=== PATIENT | male | born 1950 | race Caucasian/White ===

== ENCOUNTER 2017-10-14 17:55 | Emergency (ER) | payer MEDICARE, OTHER ==
--- NOTE | 2017-10-14 19:01 | CT ---
CT BRAIN WITHOUT CONTRAST: Date: 10/14/17 HISTORY: Emergency exam. Fall. Injury. Trauma. FINDINGS: No acute territorial infarct or hemorrhage. No midline shift or mass effect. Ventricular size and ext ra-axial CSF spaces are similar. Mild atrophy. Mild microvascular ischemic changes, chronic. Paranasal sinuses and mastoids are clear. IMPRESSION: No acute intracranial abnormality. POS: [facility]
[2017-10-14 19:26] LABS: #Basophils 0.1 thou/uL (0.0-0.2); #Lymphocytes 1.3 thou/uL (1.20-3.40); #Neutrophils 10.8 thou/uL (1.40-6.50); %Basophils 0.4 % (0.0-1.0); %Eosinophils 0.3 % (0.0-10.0); %Lymphocytes 9.9 % (21.0-51.0); %Monocytes 7.7 % (0.0-10.0); Hematocrit 36.9 % (42.0-52.0); Mean Platelet Volume 6.9 fL (7.4-10.4); Red Blood Cell (RBC) Count 3.81 mill/uL (4.70-6.10); White Blood Cell (WBC) Count 13.2 thou/uL (4.8-10.8)
--- NOTE | 2017-10-14 19:33 | CT ---
CERVICAL SPINE CT WITHOUT CONTRAST: Date: 10/14/17 COMPARISON: MRI cervical spine from 05/04/16. FINDINGS: The occipital condyles are intact. The odontoid process is intact. Both mandibular condyles are well seated within the condylar fossa. There is no acute fracture or malalignment of the cervical spine. Mild emphysematous changes of the l berna apices. Remainder of the paraspinal soft tissues are unremarkable. IMPRESSION: No acute fracture or malalignment of the cervical spine. POS: [facility]
[2017-10-14 19:39] LABS: PTT 26.7 SEC (22.9-36.1); Prothrombin Time 13.4 SEC (12.0-14.7)
[2017-10-14 19:50] LABS: ALT (SGPT) 19 U/L (8-55); AST (SGOT) 21 U/L (5-34); Alkaline Phosphatase 72 U/L (40-150); Anion Gap 14 mmol/L (10-20); BUN (Urea Nitrogen) 22 mg/dL (8.4-25.7); Bilirubin, Total 0.2 mg/dL (0.2-1.2); Calc. Creatinine Clearance 0 mL/min (70-130); Calcium 9.3 mg/dL (7.8-10.44); Carbon Dioxide 24 mmol/L (23-31); Chloride 108 mmol/L (98-107); Estimated GFR-MDRD 56; Globulin 2.7 g/dL (2.4-3.5); Protein, Total 6.7 g/dL (5.8-8.1)
[2017-10-14 19:51] LABS: Bilirubin Negative (Negative); Blood, Urine Trace (Negative); Glucose, Urine (Dipstick) Negative (Negative); Ketone, Urine Negative (Negative); Nitrite Negative (Negative); Protein, Urine (Dipstick) Trace mg/dL (Neg-Trace); Urobilinogen 0.2 mg/dL (0.2-1.0)
[2017-10-14 19:53] LABS: Bacteria/HPF None Seen HPF (None Seen); Hyaline Casts/LPF 0-3 HYALINE CAST LPF (0-3 Hyaline); RBC/HPF 0-3 HPF (0-3); Squamous Epithelial 0-3 HPF (0-3); WBC/HPF 0-3 HPF (0-3)
--- NOTE | 2017-10-14 20:28 | RAD ---
CHEST ONE VIEW HISTORY: Fall. COMPARISON: Chest one view 05/24/2017. FINDINGS: Lungs without focal airspace consolidation, pneumothorax, or effusion. Linear opacity in the left iglesia g base is similar. No acute osseous abnormality. IMPRESSION: No acute intrathoracic abnormality. POS: [facility]
--- NOTE | 2017-10-14 20:29 | RAD ---
RIGHT ELBOW FOUR VIEWS: HISTORY: Trauma. COMPARISON: None. FINDINGS: No acute fracture or malalignment. Soft tissue is unremarkable. IMPRESSION: No acute fracture or malalignment. POS: [facility]
--- NOTE | 2017-10-14 20:32 | RAD ---
LEFT ELBOW FOUR VIEWS: HISTORY: Trauma. COMPARISON: None. FINDINGS: There is a peripherally sclerotic lucency within the capitellum likely chronic in nature. There is a small joint effusion. IMPRESSION: Small joint effusion without displaced fracture or malalignment. POS: [facility]
[2017-10-14] MEDS ORDERED: Acetaminophen 500 MG TAB ONE (20:50)
--- NOTE | 2017-11-19 12:32 | EKG ---
Test Reason : FALL Blood Pressure : / mmHG Vent. Rate : 087 BPM Atrial Rate : 087 BPM P-R Int : 146 ms QRS Dur : 074 ms QT Int : 388 ms P-R-T Axes : 011 -04 005 degrees QTc Int : 466 ms Normal sinus rhythm Normal ECG No ST elevation/IN Confirmed by REX ANDREWS ([id number]), general expeditor ADA BARDALES ([id number]) on 11/19/2017 12:32:05 PM Referred By: Confirmed By:REX ANDREWS
== END 2017-10-14 22:00 | disposition home or self-care (01) ==
LOC: ERS 17:55
DX: S00.83XA Contusion of other part of head, initial encounter (principal); I73.9 Peripheral vascular disease, unspecified; F17.210 Nicotine dependence, cigarettes, uncomplicated; Z79.899 Other long term (current) drug therapy; Z79.82 Long term (current) use of aspirin; W06.XXXA Fall from bed, initial encounter
CPT/HCPCS: 36416; 51701; 70450; 71010; 72125; 80053; 81003; 81015; 85025; 85610; 85730; 87086; 93005

== ENCOUNTER 2018-01-11 01:48 | Inpatient (IN) | payer MEDICARE ==
[2018-01-11 02:29] LABS: #Basophils 0.1 thou/uL (0.0-0.2); #Eosinphils 0.5 thou/uL (0.0-0.7); #Lymphocytes 3.1 thou/uL (1.20-3.40); #Monocytes 0.9 thou/uL (0.11-0.59); #Neutrophils 5.8 thou/uL (1.40-6.50); %Basophils 0.9 % (0.0-1.0); %Lymphocytes 29.5 % (21.0-51.0); %Monocytes 8.5 % (0.0-10.0); Hemoglobin 12.2 g/dL (14.0-18.0); Mean Corpuscular HGB CONC 33.3 g/dL (32.0-36.0); Mean Corpuscular Hemoglobin 31.5 pg (27.0-31.0); Mean Corpuscular Volume 94.7 fl (80.0-94.0); Mean Platelet Volume 6.7 fL (7.4-10.4); Platelet Count 306 thou/uL (130-400); RBC Distribution Width 12.3 % (11.5-14.5); Red Blood Cell (RBC) Count 3.88 mill/uL (4.70-6.10); White Blood Cell (WBC) Count 10.4 thou/uL (4.8-10.8)
[2018-01-11 02:52] LABS: ALT (SGPT) 24 U/L (8-55); AST (SGOT) 29 U/L (5-34); Albumin 3.8 g/dL (3.4-4.8); Alkaline Phosphatase 78 U/L (40-150); Anion Gap 10 mmol/L (10-20); BUN (Urea Nitrogen) 17 mg/dL (8.4-25.7); Bilirubin, Total 0.4 mg/dL (0.2-1.2); CK (CPK) 443 U/L (30-200); Calc. Creatinine Clearance 0 mL/min (70-130); Calcium 9.2 mg/dL (7.8-10.44); Carbon Dioxide 28 mmol/L (23-31); Chloride 104 mmol/L (98-107); Estimated GFR-MDRD 67; Globulin 2.6 g/dL (2.4-3.5); Glucose 112 mg/dL (80-115); Potassium 4.1 mmol/L (3.5-5.1); Protein, Total 6.4 g/dL (5.8-8.1); Sodium 138 mmol/L (136-145)
[2018-01-11 02:56] LABS: CKMB 4.9 ng/mL (0-6.6); Troponin I 0.198 ng/mL (< 0.028)
[2018-01-11] MEDS ORDERED: Nitroglycerin 2% Ointment 1 INCH/1 GM Packet ONE (04:21)
[2018-01-11 05:38] LABS: Troponin I 0.168 ng/mL (< 0.028)
[2018-01-11 07:48] VITALS: BMI 27.8
[2018-01-11 08:40] LABS: Troponin I 0.155 ng/mL (< 0.028)
[2018-01-11] MEDS ORDERED: Acetaminophen 325 MG TAB PO PRN (08:40)
[2018-01-11] MEDS ORDERED: Ondansetron ODT 4 MG TAB PO PRN (08:40)
[2018-01-11] MEDS ORDERED: Acetaminophen ER (8hr) 650 MG TAB PO PRN (08:41)
[2018-01-11] MEDS ORDERED: Aspirin 325 MG TAB PO SCH (09:00)
[2018-01-11] MEDS ORDERED: Non-Formulary Item 1 EACH (Carbidopa/Levodopa [Sinemet Cr] 1 TAB) PO SCH (09:00)
[2018-01-11] MEDS: Multivitamin W/ Minerals 1 TAB PO SCH ×2 (09:17→11:46)
[2018-01-11] MEDS: Aspirin 325 MG TAB PO SCH ×2 (09:17→11:43)
[2018-01-11] MEDS: Carbidopa/Levodopa CR 50-200 mg Tablet PO SCH ×5 (09:17→21:49)
[2018-01-11] MEDS: Lisinopril 20 MG TAB PO SCH ×2 (09:18→11:44)
[2018-01-11] MEDS: Gabapentin 100 MG CAP PO SCH ×2 (09:18→11:46)
[2018-01-11] MEDS: Citalopram 20 MG TAB PO SCH ×2 (09:18→11:41)
[2018-01-11] MEDS: Meloxicam 7.5 MG TAB PO SCH ×2 (09:18→11:46)
[2018-01-11] MEDS: Clopidogrel Bisulfate 75 MG TAB PO SCH ×2 (09:18→11:42)
[2018-01-11] MEDS: Enoxaparin Sodium 80 MG/0.8 ML SYRINGE SC SCH ×3 (09:19→21:51)
--- NOTE | 2018-01-11 09:47 | HP ---
PRIMARY CARE PROVIDER: Dr. Rafael Mora. Referred to [facility] by [facility]. HISTORY OF PRESENT ILLNESS: The patient apparently had an anxiety attack all day long yesterday. St ates he peed in his pants. He is unable to describe any chest pain or shortness breath and no fever or chills. He had some significantly abnormal cardiac enzymes with a history of coronary artery dise ase, he was referred. PAST MEDICAL HISTORY: Pertinent for coronary artery disease with a history of PCI in the past. He h as a history of peripheral vascular disease, history of neuropathy, states he had rheumatic fever at 3 years of age, has a history of skin cancers and stress factors. PAST SURGICAL HISTORY: Tonsillectomy. He also has a history of anxiety, depression, and Parkinson's disease. CURRENT MEDICATIONS: Aspirin 325 mg a day, Sinemet-CR 25/100 q.i.d., Celexa 30 mg a day, Plavix 75 m g a day, gabapentin 200 mg a day, Levothyroxine 150 mcg a day, lisinopril 20 mg a day, Meloxicam 7.5 mg a day, omeprazole 20 mg a day, pravastatin 80 mg a day, Risperdal 0.5 mg at bedtime. ALLERGIES: PENICILLINS and PEPCID. He states the Pepcid gave him diarrhea. SOCIAL HISTORY: . Smoked in the past, has quit. Does not use any alcohol or recreational dr lopez. FAMILY HISTORY: Mother had peripheral arterial disease. Father had COPD. CODE STATUS: FULL. REVIEW OF SYSTEMS: General: No headaches, dizziness or fainting. Eyes: No double vision, blurred vision, flashing lights. ENT: No ear pain or drainage. No nasal bleeding or trouble swallowing. C ardiac: No chest pressure, no shortness of breath, no orthopnea. Respiratory: No cough, wheezing o r asthma. Gastrointestinal: No nausea, vomiting, diarrhea, constipation or abdominal pain. Genitou rinary: He says he "peed" on himself yesterday, but has no history of dysuria, incontinence or hemat uria prior to that. Musculoskeletal: No pain or swelling in his arms or legs. Neurologic: He has Parkinson's disease on treatment. He has a significant tremor. Psychiatric: Long history of anxiet y, depression and anxiety attacks. He states he has been tried alprazolam and did not do well. Skin : No bruising, bleeding or rash. Heme/Lymph: No tender or swollen lymph nodes in axilla, inguinal or cervical area. PHYSICAL EXAMINATION: GENERAL: He is an alert, apprehensive looking gentleman. VITAL SIGNS: Blood pressure 189/88, pulse 83, respirations 16, temperature 98.4. HEENT: Pupils equal and round. Extraocular movements are intact. Sclerae white. Tympanic membrane s clear. Nose clear. Oral mucous membranes are wet. NECK: No jugular venous distention, adenopathy or thyromegaly. CHEST: Clear to auscultation and percussion. There are no focal findings. HEART: Regular rate and rhythm. First and second heart sounds were clear. I do not appreciate any murmurs or gallops. ABDOMEN: Soft, bowel sounds are normal. No hepatosplenomegaly, no mass, no rebound, no bruits. EXTREMITIES: Reveal no cyanosis, clubbing or edema. Carotid and radial pulses were normal, symmetri c. Femoral and pedal pulses diminished, symmetric. SKIN: No bruising, bleeding or rash. HEME/LYMPH: No tender or swollen lymph nodes in axilla, inguinal or cervical area. NEUROLOGICAL: Cranial nerves II through XII are intact. Deep tendon reflexes symmetric. He has sig nificant cogwheeling on motion of his arms. He has some rigidity. X-RAY FINDINGS: EKG: Regular rate and rhythm, no acute changes, some nonspecific T-wave changes, re viewed by me. Chest x-ray: No cardiomegaly, CHF or infiltrate, reviewed by me. LABORATORY DATA: Hemoglobin 12.2, white count 10.4, platelet count 306,000. Most significant abnorm ality on chemistries is troponin 0.198, 0.168, 0.155. BNP is 273. Comp metabolic profile is normal. ADMITTING DIAGNOSES: Non-ST elevation myocardial infarction, coronary artery disease, hypertension, peripheral vascular disease, anxiety, depression, previous smoker. PLAN: I have consulted Dr. Armstrong. The patient will be placed on Lovenox, will be catheterized with in the next 2 days. Continue aspirin and his home medicines. Serial exams.
--- NOTE | 2018-01-11 09:57 | CON ---
DATE OF CONSULTATION: 01/11/2018 REASON FOR CONSULTATION: Anxiety, increased troponin levels, and history of peripheral vascular dise ase. PRIMARY CENTER MACHINE SET UP OPERATOR: Tammy Wilson M.D. HISTORY OF PRESENT ILLNESS: Mr. Al is a very pleasant 67-year-old gentleman, he has had an episo de of an anxiety yesterday and he said things just did not feel right, he did not have chest pain or pressure, but he thought he was having a stroke. The symptoms did not resolve. He came to the emergency room. He was found to have a slight increase in troponin levels. The patient has had previous episodes of feeling anxious, but had negative troponin levels in the pas t. PAST MEDICAL HISTORY: 1. She has a history of peripheral vascular disease, has a stent in both iliac arteries placed about a year ago by Dr. Urbina that helped his exertional claudication quite a bit. 2. History of Parkinson's. 3. Some history of anxiety in the past. 4. No diagnosis of coronary artery disease in the past. REVIEW OF SYSTEMS: Constitutional: Positive for anxiety. Vision: No changes. Hearing: No change s. Pulmonary: No cough or wheezing. Gastrointestinal: No nausea, vomiting, diarrhea. Skin: No r ashes. Neurologic: No unilateral weakness or numbness. Psychiatric: Positive for anxiety. No uni lateral weakness. MEDICATIONS: 1. Aspirin. 2. Plavix. 3. Atorvastatin. 4. Lisinopril. 5. Gabapentin. 6. Carbidopa/levodopa. 7. Levothyroxine. ALLERGIES: FAMOTIDINE and PENICILLIN. PHYSICAL EXAMINATION: GENERAL: Somewhat apprehensive gentleman. He says he feels okay now. He is not having anxiety at t he present moment. No chest pain or pressure. VITAL SIGNS: Blood pressure is high 189/88, pulse 80. LUNGS: Clear. CARDIAC: Normal S1, normal S2. There is no murmur, rub or gallop. ABDOMEN: Soft, nontender, no hepatosplenomegaly. EXTREMITIES: Warm, dry, no clubbing, cyanosis or edema. Femoral pulses are palpable but seems somew hat diminished. LABORATORY DATA: The patient's troponin level 0.198, BNP 272. EKG, no acute changes. ASSESSMENT: 1. Evidence of increased troponin level in the setting of "panic attack," I suspect this may be alyson nal equivalent. 2. History of peripheral vascular disease. 3. Hypertension. 4. Parkinson's disease. PLAN: 1. Lisinopril will be continued. 2. We will add beta judah. 3. Aspirin. 4. Plavix has already been given. 5. Enoxaparin. 6. We would recommend proceeding to cardiac catheterization on Saturday or earlier if needed. The pat ient appears stable now. The patient states he has not had a previous cardiac catheterization. Dr. Wilson will be back on Saturday to make a final decision about that.
[2018-01-11] MEDS: Metoprolol Tartrate 25 MG TAB PO SCH ×3 (09:59→20:39)
[2018-01-11 10:38] LABS: Hemoglobin 12.1 g/dL (14.0-18.0); Platelet Count 311 thou/uL (130-400)
--- NOTE | 2018-01-11 10:46 | RAD ---
PORTABLE CHEST 1 VIEW: Date: 01/11/18 Time: 0403 hours HISTORY: Chest pain. FINDINGS: Comparison made with exam of 10/14/17. The heart size is normal. The lungs are well expanded without focal areas of consolidation, pneumotho rax, or pleural effusions. IMPRESSION: No radiographic evidence of acute cardiopulmonary process. POS: [facility]
--- NOTE | 2018-01-11 18:04 | EKG ---
Test Reason : Blood Pressure : / mmHG Vent. Rate : 075 BPM Atrial Rate : 075 BPM P-R Int : 138 ms QRS Dur : 076 ms QT Int : 402 ms P-R-T Axes : 031 -22 -24 degrees QTc Int : 448 ms Normal sinus rhythm Nonspecific T wave abnormality Abnormal ECG Confirmed by TIA DOS SANTOS, DEV ([id number]), manager golf KATHY BRIDGES ([id number]) on 01/11/2018 6:03:45 PM Referred By: Confirmed By:DEV WEBER MD
[2018-01-11] MEDS ORDERED: Pravastatin Sodium 20 MG TAB PO SCH (21:00)
[2018-01-11] MEDS: risperiDONE 0.25 MG TAB PO SCH (21:48)
[2018-01-11] MEDS: Atorvastatin Calcium 20 MG TAB PO SCH (21:49)
[2018-01-12] MEDS: Levothyroxine 150 MCG TAB PO SCH (05:18)
[2018-01-12 05:21] LABS: Anion Gap 13 mmol/L (10-20); BUN (Urea Nitrogen) 19 mg/dL (8.4-25.7); Calc. Creatinine Clearance 68 mL/min (70-130); Calcium 9.3 mg/dL (7.8-10.44); Carbon Dioxide 26 mmol/L (23-31); Chloride 103 mmol/L (98-107); Estimated GFR-MDRD 59; Glucose 102 mg/dL (80-115); Potassium 4.1 mmol/L (3.5-5.1); Sodium 138 mmol/L (136-145)
--- NOTE | 2018-01-12 10:10 | PDOC.PN ---
- Subjective Encounter Start Date: 01/12/18 Encounter Start Time: 08:10 Patient seen and examined. No new complaints. No overnight events - Objective MAR Reviewed: Yes Vital Signs & Weight: Vital Signs (12 hours) Temp Pulse Resp BP Pulse Ox 01/12/18 05:00 98.7 F 67 20 123/68 100 01/12/18 03:14 95 Weight Weight 175 lb 1.6 oz I&O: 01/11/18 01/12/18 01/13/18 06:59 06:59 06:59 Intake Total 1760 Output Total 1775 Balance -15 Result Diagrams: 01/11/18 05:12 01/12/18 04:28 EKG Reviewed by me: Yes (nsr) Phys Exam - Physical Examination Constitutional: NAD HEENT: PERRLA, moist MMs, sclera anicteric Neck: no JVD, supple Respiratory: no wheezing, no rales, no rhonchi Cardiovascular: RRR, no significant murmur, no rub Gastrointestinal: soft, non-tender, no distention, positive bowel sounds Musculoskeletal: no edema, pulses present Neurological: non-focal, normal sensation Psychiatric: normal affect, A&O x 3 Skin: no rash, normal turgor Dx/Plan (1) Chest pain Code(s): R07.9 - CHEST PAIN, UNSPECIFIED Status: Acute Qualifiers: (2) Elevated troponin Code(s): R74.8 - ABNORMAL LEVELS OF OTHER SERUM ENZYMES Status: Acute (3) Anxiety and depression Code(s): F41.8 - OTHER SPECIFIED ANXIETY DISORDERS Status: Chronic (4) COPD (chronic obstructive pulmonary disease) Status: Chronic (5) Dyslipidemia Code(s): E78.5 - HYPERLIPIDEMIA, UNSPECIFIED Status: Chronic (6) GERD (gastroesophageal reflux disease) Code(s): K21.9 - GASTRO-ESOPHAGEAL REFLUX DISEASE WITHOUT ESOPHAGITIS Status: Chronic (7) Hypothyroidism Code(s): E03.9 - HYPOTHYROIDISM, UNSPECIFIED Status: Chronic (8) PVD (peripheral vascular disease) Code(s): I73.9 - PERIPHERAL VASCULAR DISEASE, UNSPECIFIED Status: Chronic (9) Parkinson disease Code(s): G20 - PARKINSON'S DISEASE Status: Chronic - Plan cont current plan of care * tomorrow dr neff will decide about cardiac cath * medication reviewed as below * symptomatic treatment * stable otherwise. Review of Systems - Review of Systems Constitutional: negative: fever, chills, sweats, weakness, malaise, other ENT: negative: Ear Pain, Ear Discharge, Nose Pain, Nose Discharge, Nose Congestion, Mouth Pain, Mouth Swelling, Throat Pain, Throat Swelling, Other Respiratory: negative: Cough, Dry, Shortness of Breath, Hemoptysis, SOB with Excertion, Pleuritic Pain, Sputum, Wheezing Cardiovascular: negative: chest pain, palpitations, orthopnea, paroxysmal nocturnal dyspnea, edema, light headedness, other Gastrointestinal: negative: Nausea, Vomiting, Abdominal Pain, Diarrhea, Constipation, Melena, Hematochezia, Other Genitourinary: negative: Dysuria, Frequency, Incontinence, Hematuria, Retention , Other Musculoskeletal: negative: Neck Pain, Shoulder Pain, Arm Pain, Back Pain, Hand Pain, Leg Pain, Foot Pain, Other Skin: negative: Rash, Lesions, Yusef, Bruising, Other - Medications/Allergies Allergies/Adverse Reactions: Allergies Allergy/AdvReac Type Severity Reaction Status Date / Time famotidine [From Pepcid] Allergy extreme Verified 02/21/17 09:58 diarrhea Penicillins Allergy Verified 01/11/18 07:27 Medications: Current Medications Acetaminophen (Tylenol) 650 mg PO Q4H PRN PRN Reason: Headache/Fever or Pain Acetaminophen (Tylenol Er (8hr Arthritis Pain)) 650 mg PO QID PRN PRN Reason: pain Aspirin (Aspirin) 325 mg PO DAILY [facility] Last Admin: 01/11/18 11:43 Dose: 325 mg Atorvastatin Calcium (Lipitor) 20 mg PO HS [facility] Last Admin: 01/11/18 21:49 Dose: 20 mg Carbidopa/Levodopa (Sinemet Cr 50/200) 0.5 tab PO QID [facility] Last Admin: 01/11/18 21:49 Dose: 0.5 tab Citalopram Hydrobromide (Celexa) 30 mg PO DAILY [facility] Last Admin: 01/11/18 11:41 Dose: 30 mg Clopidogrel Bisulfate (Plavix) 75 mg PO DAILY [facility] Last Admin: 01/11/18 11:42 Dose: 75 mg Enoxaparin Sodium (Lovenox) 80 mg SC 0900,2100 [facility] Last Admin: 01/11/18 21:51 Dose: 80 mg Gabapentin (Neurontin) 200 mg PO DAILY [facility] Last Admin: 01/11/18 11:46 Dose: Not Given Iron/Minerals/Multivitamins (Theragran M) 1 tab PO DAILY [facility] Last Admin: 01/11/18 11:46 Dose: Not Given Levothyroxine Sodium (Synthroid) 150 mcg PO 0600 [facility] Last Admin: 01/12/18 05:18 Dose: 150 mcg Lisinopril (Zestril) 20 mg PO DAILY [facility] Last Admin: 01/11/18 11:44 Dose: 20 mg Meloxicam (Mobic) 7.5 mg PO DAILY [facility] Last Admin: 01/11/18 11:46 Dose: Not Given Metoprolol Tartrate (Lopressor) 25 mg PO BID [facility] Last Admin: 01/11/18 20:39 Dose: 25 mg Ondansetron HCl (Zofran Odt) 4 mg PO Q6H PRN PRN Reason: Nausea/Vomiting Pantoprazole Sodium (Protonix) 40 mg PO DAILY [facility] Last Admin: 01/11/18 11:44 Dose: 40 mg Risperidone (Risperidone) 0.5 mg PO HS [facility] Last Admin: 01/11/18 21:48 Dose: 0.5 mg
[2018-01-12] MEDS: Metoprolol Tartrate 25 MG TAB PO SCH ×2 (10:37→22:20)
[2018-01-12] MEDS: Gabapentin 100 MG CAP PO SCH (10:37)
[2018-01-12] MEDS: Citalopram 20 MG TAB PO SCH (10:38)
[2018-01-12] MEDS: Multivitamin W/ Minerals 1 TAB PO SCH (10:38)
[2018-01-12] MEDS: Clopidogrel Bisulfate 75 MG TAB PO SCH (10:39)
[2018-01-12] MEDS: Lisinopril 20 MG TAB PO SCH (10:39)
[2018-01-12] MEDS: Meloxicam 7.5 MG TAB PO SCH (10:40)
[2018-01-12] MEDS: Aspirin 325 MG TAB PO SCH (10:40)
[2018-01-12] MEDS: Carbidopa/Levodopa CR 50-200 mg Tablet PO SCH ×4 (10:40→22:20)
[2018-01-12] MEDS: Enoxaparin Sodium 80 MG/0.8 ML SYRINGE SC SCH (10:41)
[2018-01-12] MEDS: Atorvastatin Calcium 20 MG TAB PO SCH (22:19)
[2018-01-12] MEDS: risperiDONE 0.25 MG TAB PO SCH (22:19)
--- NOTE | 2018-01-12 22:39 | CT ---
CT HEAD WITHOUT CONTRAST: Date: 01/12/18 Multiple axial tomograms obtained through the head without IV enhancement. HISTORY: Fall with injury to head. On blood thinner. FINDINGS: Jhonathan cisterna magna. No intracranial hemorrhage. Chronic ischemic white matter changes appear stable when compared to exam of 10/14/17. IMPRESSION: No acute finding. No acute hemorrhage. No change from 10/14/17. POS: [facility]
[2018-01-13] MEDS: Metoprolol Tartrate 25 MG TAB PO SCH ×3 (02:34→21:39)
[2018-01-13] MEDS: Atorvastatin Calcium 20 MG TAB PO SCH ×2 (02:34→21:38)
[2018-01-13] MEDS: Carbidopa/Levodopa CR 50-200 mg Tablet PO SCH ×5 (02:34→21:38)
[2018-01-13] MEDS: risperiDONE 0.25 MG TAB PO SCH ×2 (02:34→21:39)
[2018-01-13] MEDS: Levothyroxine 150 MCG TAB PO SCH (06:12)
[2018-01-13] MEDS ORDERED: Milk Of Magnesia 30 ML UDCUP PO PRN (07:57)
[2018-01-13] MEDS ORDERED: Chloraseptic Spray 180 ml Bottle PO PRN (07:57)
[2018-01-13] MEDS ORDERED: Eucerin (Mineral Oil/Petrolatum,White) 30 gm Jar TOP PRN (07:57)
[2018-01-13] MEDS ORDERED: Senokot 8.6 MG TAB PO PRN (07:57)
[2018-01-13] MEDS ORDERED: hydrALAZINE 20 MG/ML VIAL SLOW IVP PRN (07:57)
[2018-01-13] MEDS ORDERED: Mag-Al 1200 mg/1200 mg/30 ML UDCUP PO PRN (07:57)
[2018-01-13] MEDS ORDERED: Sodium Chloride 0.65% Nasal 44 ML BOT EA NARE PRN (07:57)
[2018-01-13] MEDS ORDERED: Loperamide HCl 2 MG CAP PO PRN (07:57)
[2018-01-13] MEDS ORDERED: Ondansetron PF 4 MG/2 ML Vial IVP PRN (07:57)
[2018-01-13] MEDS ORDERED: Loratadine 10 MG TAB PO PRN (07:57)
[2018-01-13] MEDS ORDERED: Artificial Tears 18 DROP/0.9 ML EA EYE PRN (07:57)
[2018-01-13] MEDS ORDERED: Diabetic Tussin 200 MG/10 ML UDCUP PO PRN (07:57)
[2018-01-13] MEDS: Lisinopril 20 MG TAB PO SCH (08:54)
[2018-01-13] MEDS: Gabapentin 100 MG CAP PO SCH (08:56)
[2018-01-13] MEDS: Meloxicam 7.5 MG TAB PO SCH (08:57)
[2018-01-13] MEDS: Multivitamin W/ Minerals 1 TAB PO SCH (08:57)
[2018-01-13] MEDS: Clopidogrel Bisulfate 75 MG TAB PO SCH (08:57)
[2018-01-13] MEDS: Citalopram 20 MG TAB PO SCH (08:57)
[2018-01-13] MEDS: Aspirin 325 MG TAB PO SCH (08:58)
--- NOTE | 2018-01-13 10:22 | PDOC.PN ---
- Subjective Encounter Start Date: 01/13/18 Encounter Start Time: 07:50 yesterday pt fell but no injury, CT brain is negative, no chest pain, - Objective MAR Reviewed: Yes Vital Signs & Weight: Vital Signs (12 hours) Temp Pulse Resp BP BP Pulse Ox 01/13/18 08:54 168/80 H 01/13/18 08:50 98.4 F 72 16 168/80 H 94 L 01/13/18 05:00 98.1 F 68 12 142/68 H 95 Weight Weight 175 lb 4.8 oz I&O: 01/12/18 01/13/18 01/14/18 06:59 06:59 06:59 Intake Total 1760 1260 Output Total 1775 250 Balance -15 1010 Result Diagrams: 01/11/18 05:12 01/12/18 04:28 Radiology Reviewed by me: Yes (CT brain) EKG Reviewed by me: Yes Phys Exam - Physical Examination Constitutional: NAD HEENT: PERRLA, moist MMs, sclera anicteric Neck: no JVD, supple Respiratory: no wheezing, no rales, no rhonchi Cardiovascular: RRR, no significant murmur, no rub Gastrointestinal: soft, non-tender, no distention, positive bowel sounds Musculoskeletal: no edema, pulses present Neurological: non-focal, normal sensation, moves all 4 limbs Psychiatric: normal affect, A&O x 3 Skin: no rash, normal turgor Dx/Plan (1) Chest pain Code(s): R07.9 - CHEST PAIN, UNSPECIFIED Status: Acute Qualifiers: (2) Elevated troponin Code(s): R74.8 - ABNORMAL LEVELS OF OTHER SERUM ENZYMES Status: Acute (3) Anxiety and depression Code(s): F41.8 - OTHER SPECIFIED ANXIETY DISORDERS Status: Chronic (4) COPD (chronic obstructive pulmonary disease) Status: Chronic (5) Dyslipidemia Code(s): E78.5 - HYPERLIPIDEMIA, UNSPECIFIED Status: Chronic (6) GERD (gastroesophageal reflux disease) Code(s): K21.9 - GASTRO-ESOPHAGEAL REFLUX DISEASE WITHOUT ESOPHAGITIS Status: Chronic (7) Hypothyroidism Code(s): E03.9 - HYPOTHYROIDISM, UNSPECIFIED Status: Chronic (8) PVD (peripheral vascular disease) Code(s): I73.9 - PERIPHERAL VASCULAR DISEASE, UNSPECIFIED Status: Chronic (9) Parkinson disease Code(s): G20 - PARKINSON'S DISEASE Status: Chronic - Plan cont current plan of care, plan discussed w/ family, PT/OT, social worker palliative care * today cardiology to decide about cardiac cath * as pt has frequent fall, pt and family request SNU evaluation * start PT/OT * medication reviewed as below * symptomatic treatment. Review of Systems - Review of Systems Eyes: negative: Pain, Vision Change, Conjunctivae Inflammation, Eyelid Inflammation, Redness, Other ENT: negative: Ear Pain, Ear Discharge, Nose Pain, Nose Discharge, Nose Congestion, Mouth Pain, Mouth Swelling, Throat Pain, Throat Swelling, Other Respiratory: negative: Cough, Dry, Shortness of Breath, Hemoptysis, SOB with Excertion, Pleuritic Pain, Sputum, Wheezing Cardiovascular: negative: chest pain, palpitations, orthopnea, paroxysmal nocturnal dyspnea, edema, light headedness, other Gastrointestinal: negative: Nausea, Vomiting, Abdominal Pain, Diarrhea, Constipation, Melena, Hematochezia, Other Genitourinary: negative: Dysuria, Frequency, Incontinence, Hematuria, Retention , Other Musculoskeletal: negative: Neck Pain, Shoulder Pain, Arm Pain, Back Pain, Hand Pain, Leg Pain, Foot Pain, Other Skin: negative: Rash, Lesions, Yusef, Bruising, Other - Medications/Allergies Allergies/Adverse Reactions: Allergies Allergy/AdvReac Type Severity Reaction Status Date / Time famotidine [From Pepcid] Allergy extreme Verified 02/21/17 09:58 diarrhea Penicillins Allergy Verified 01/11/18 07:27 Medications: Current Medications Acetaminophen (Tylenol) 650 mg PO Q4H PRN PRN Reason: Headache/Fever or Pain Acetaminophen (Tylenol Er (8hr Arthritis Pain)) 650 mg PO QID PRN PRN Reason: pain Al Hydroxide/Mg Hydroxide (Maalox) 15 ml PO Q4H PRN PRN Reason: Heartburn or Indigestion Artificial Tears (Tears Naturale) 0 drop EA EYE PRN PRN PRN Reason: Dry Eyes Aspirin (Aspirin) 325 mg PO DAILY [facility] Last Admin: 01/13/18 08:58 Dose: 325 mg Atorvastatin Calcium (Lipitor) 20 mg PO HS [facility] Last Admin: 01/13/18 02:34 Dose: Not Given Carbidopa/Levodopa (Sinemet Cr 50/200) 0.5 tab PO QID [facility] Last Admin: 01/13/18 08:55 Dose: 0.5 tab Citalopram Hydrobromide (Celexa) 30 mg PO DAILY [facility] Last Admin: 01/13/18 08:57 Dose: 30 mg Clopidogrel Bisulfate (Plavix) 75 mg PO DAILY [facility] Last Admin: 01/13/18 08:57 Dose: 75 mg Gabapentin (Neurontin) 200 mg PO DAILY [facility] Last Admin: 01/13/18 08:56 Dose: 200 mg Guaifenesin (Robitussin Sf) 200 mg PO Q4H PRN PRN Reason: Cough Hydralazine HCl (Apresoline) 10 mg SLOW IVP Q4H PRN PRN Reason: Systolic BP > 180 Iron/Minerals/Multivitamins (Theragran M) 1 tab PO DAILY [facility] Last Admin: 01/13/18 08:57 Dose: 1 tab Levothyroxine Sodium (Synthroid) 150 mcg PO 0600 [facility] Last Admin: 01/13/18 06:12 Dose: 150 mcg Lisinopril (Zestril) 20 mg PO DAILY [facility] Last Admin: 01/13/18 08:54 Dose: 20 mg Loperamide HCl (Imodium) 2 mg PO PRN PRN PRN Reason: Diarrhea/Loose Stools Loratadine (Claritin) 10 mg PO DAILYPRN PRN PRN Reason: Sinus Symptoms Magnesium Hydroxide (Milk Of Magnesium) 30 ml PO DAILYPRN PRN PRN Reason: Constipation Meloxicam (Mobic) 7.5 mg PO DAILY [facility] Last Admin: 01/13/18 08:57 Dose: 7.5 mg Metoprolol Tartrate (Lopressor) 25 mg PO BID [facility] Last Admin: 01/13/18 08:57 Dose: 25 mg Mineral Oil/White Petrolatum (Eucerin Cream) 0 gm TOP BIDPRN PRN PRN Reason: Dry Skin Ondansetron HCl (Zofran Odt) 4 mg PO Q6H PRN PRN Reason: Nausea/Vomiting Ondansetron HCl (Zofran) 4 mg IVP Q6H PRN PRN Reason: Nausea/Vomiting Pantoprazole Sodium (Protonix) 40 mg PO DAILY [facility] Last Admin: 01/13/18 08:56 Dose: 40 mg Phenol (Chloraseptic [place] 180 Ml Bot) 0 ml PO PRN PRN PRN Reason: Sore Throat Risperidone (Risperidone) 0.5 mg PO HS [facility] Last Admin: 01/13/18 02:34 Dose: Not Given Senna (Senokot) 2 tab PO HSPRN PRN PRN Reason: Constipation Sodium Chloride ([place] Nasal [place] 0.65%) 0 ml EA NARE QIDPRN PRN PRN Reason: Nasal Congestion Sodium Chloride (Flush - Normal Saline) 10 ml IVF Q12HR [facility] Last Admin: 01/13/18 08:58 Dose: 10 ml Sodium Chloride (Flush - Normal Saline) 10 ml IVF PRN PRN PRN Reason: Saline Flush
[2018-01-13 13:50] LABS: Hemoglobin 13.9 g/dL (14.0-18.0); Platelet Count 369 thou/uL (130-400)
[2018-01-14] MEDS: Levothyroxine 150 MCG TAB PO SCH (05:48)
[2018-01-14] MEDS: Aspirin 325 MG TAB PO SCH (09:32)
[2018-01-14] MEDS: Gabapentin 100 MG CAP PO SCH (09:33)
[2018-01-14] MEDS: Multivitamin W/ Minerals 1 TAB PO SCH (09:33)
[2018-01-14] MEDS: Clopidogrel Bisulfate 75 MG TAB PO SCH (09:33)
[2018-01-14] MEDS: Citalopram 20 MG TAB PO SCH (09:33)
[2018-01-14] MEDS: Meloxicam 7.5 MG TAB PO SCH (09:34)
[2018-01-14] MEDS: Metoprolol Tartrate 25 MG TAB PO SCH (09:34)
[2018-01-14] MEDS: Lisinopril 20 MG TAB PO SCH (09:34)
[2018-01-14] MEDS: Carbidopa/Levodopa CR 50-200 mg Tablet PO SCH ×3 (09:34→15:54)
--- NOTE | 2018-01-14 09:34 | PDOC.PN ---
- Subjective Encounter Start Date: 01/14/18 Encounter Start Time: 08:00 Patient seen and examined. No new complaints. No overnight events - Objective MAR Reviewed: Yes Vital Signs & Weight: Vital Signs (12 hours) Temp Pulse Resp BP Pulse Ox 01/14/18 09:28 98.6 F 90 16 171/83 H 95 01/14/18 04:00 98.5 F 86 20 174/77 H 97 Weight Weight 171 lb 11.2 oz I&O: 01/13/18 01/14/18 01/15/18 06:59 06:59 06:59 Intake Total 1260 800 Output Total 250 650 Balance 1010 150 Result Diagrams: 01/13/18 13:40 01/13/18 13:40 EKG Reviewed by me: Yes Phys Exam - Physical Examination Constitutional: NAD HEENT: PERRLA, moist MMs, sclera anicteric Neck: no JVD, supple Respiratory: no wheezing, no rales, no rhonchi Cardiovascular: RRR, no significant murmur, no rub Gastrointestinal: soft, non-tender, no distention, positive bowel sounds Musculoskeletal: no edema, pulses present Neurological: non-focal, normal sensation Lymphatic: no nodes Psychiatric: normal affect, A&O x 3 Skin: no rash, normal turgor Dx/Plan (1) Chest pain Code(s): R07.9 - CHEST PAIN, UNSPECIFIED Status: Acute Qualifiers: (2) Elevated troponin Code(s): R74.8 - ABNORMAL LEVELS OF OTHER SERUM ENZYMES Status: Acute (3) Anxiety and depression Code(s): F41.8 - OTHER SPECIFIED ANXIETY DISORDERS Status: Chronic (4) COPD (chronic obstructive pulmonary disease) Status: Chronic (5) Dyslipidemia Code(s): E78.5 - HYPERLIPIDEMIA, UNSPECIFIED Status: Chronic (6) GERD (gastroesophageal reflux disease) Code(s): K21.9 - GASTRO-ESOPHAGEAL REFLUX DISEASE WITHOUT ESOPHAGITIS Status: Chronic (7) Hypothyroidism Code(s): E03.9 - HYPOTHYROIDISM, UNSPECIFIED Status: Chronic (8) PVD (peripheral vascular disease) Code(s): I73.9 - PERIPHERAL VASCULAR DISEASE, UNSPECIFIED Status: Chronic (9) Parkinson disease Code(s): G20 - PARKINSON'S DISEASE Status: Chronic - Plan 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 Review of Systems - Review of Systems ENT: negative: Ear Pain, Ear Discharge, Nose Pain, Nose Discharge, Nose Congestion, Mouth Pain, Mouth Swelling, Throat Pain, Throat Swelling, Other Respiratory: negative: Cough, Dry, Shortness of Breath, Hemoptysis, SOB with Excertion, Pleuritic Pain, Sputum, Wheezing Cardiovascular: negative: chest pain, palpitations, orthopnea, paroxysmal nocturnal dyspnea, edema, light headedness, other Gastrointestinal: negative: Nausea, Vomiting, Abdominal Pain, Diarrhea, Constipation, Melena, Hematochezia, Other Genitourinary: negative: Dysuria, Frequency, Incontinence, Hematuria, Retention , Other Musculoskeletal: negative: Neck Pain, Shoulder Pain, Arm Pain, Back Pain, Hand Pain, Leg Pain, Foot Pain, Other Skin: negative: Rash, Lesions, Yusef, Bruising, Other - Medications/Allergies Allergies/Adverse Reactions: Allergies Allergy/AdvReac Type Severity Reaction Status Date / Time famotidine [From Pepcid] Allergy extreme Verified 02/21/17 09:58 diarrhea Penicillins Allergy Verified 01/11/18 07:27 Medications: Current Medications Acetaminophen (Tylenol) 650 mg PO Q4H PRN PRN Reason: Headache/Fever or Pain Acetaminophen (Tylenol Er (8hr Arthritis Pain)) 650 mg PO QID PRN PRN Reason: pain Al Hydroxide/Mg Hydroxide (Maalox) 15 ml PO Q4H PRN PRN Reason: Heartburn or Indigestion Artificial Tears (Tears Naturale) 0 drop EA EYE PRN PRN PRN Reason: Dry Eyes Aspirin (Aspirin) 325 mg PO DAILY COUNTS INCLUDE 234 BEDS AT THE [facility] Last Admin: 01/13/18 08:58 Dose: 325 mg Atorvastatin Calcium (Lipitor) 20 mg PO HS COUNTS INCLUDE 234 BEDS AT THE [facility] Last Admin: 01/13/18 21:38 Dose: Not Given Carbidopa/Levodopa (Sinemet Cr 50/200) 0.5 tab PO QID COUNTS INCLUDE 234 BEDS AT THE [facility] Last Admin: 01/13/18 21:38 Dose: Not Given Citalopram Hydrobromide (Celexa) 30 mg PO DAILY COUNTS INCLUDE 234 BEDS AT THE [facility] Last Admin: 01/13/18 08:57 Dose: 30 mg Clopidogrel Bisulfate (Plavix) 75 mg PO DAILY COUNTS INCLUDE 234 BEDS AT THE [facility] Last Admin: 01/13/18 08:57 Dose: 75 mg Gabapentin (Neurontin) 200 mg PO DAILY COUNTS INCLUDE 234 BEDS AT THE [facility] Last Admin: 01/13/18 08:56 Dose: 200 mg Guaifenesin (Robitussin Sf) 200 mg PO Q4H PRN PRN Reason: Cough Hydralazine HCl (Apresoline) 10 mg SLOW IVP Q4H PRN PRN Reason: Systolic BP > 180 Last Admin: 01/13/18 12:06 Dose: 10 mg Iron/Minerals/Multivitamins (Theragran M) 1 tab PO DAILY COUNTS INCLUDE 234 BEDS AT THE [facility] Last Admin: 01/13/18 08:57 Dose: 1 tab Levothyroxine Sodium (Synthroid) 150 mcg PO 0600 COUNTS INCLUDE 234 BEDS AT THE [facility] Last Admin: 01/14/18 05:48 Dose: 150 mcg Lisinopril (Zestril) 20 mg PO DAILY COUNTS INCLUDE 234 BEDS AT THE [facility] Last Admin: 01/13/18 08:54 Dose: 20 mg Loperamide HCl (Imodium) 2 mg PO PRN PRN PRN Reason: Diarrhea/Loose Stools Loratadine (Claritin) 10 mg PO DAILYPRN PRN PRN Reason: Sinus Symptoms Magnesium Hydroxide (Milk Of Magnesium) 30 ml PO DAILYPRN PRN PRN Reason: Constipation Meloxicam (Mobic) 7.5 mg PO DAILY COUNTS INCLUDE 234 BEDS AT THE [facility] Last Admin: 01/13/18 08:57 Dose: 7.5 mg Metoprolol Tartrate (Lopressor) 25 mg PO BID COUNTS INCLUDE 234 BEDS AT THE [facility] Last Admin: 01/13/18 21:39 Dose: Not Given Mineral Oil/White Petrolatum (Eucerin Cream) 0 gm TOP BIDPRN PRN PRN Reason: Dry Skin Ondansetron HCl (Zofran Odt) 4 mg PO Q6H PRN PRN Reason: Nausea/Vomiting Ondansetron HCl (Zofran) 4 mg IVP Q6H PRN PRN Reason: Nausea/Vomiting Pantoprazole Sodium (Protonix) 40 mg PO DAILY COUNTS INCLUDE 234 BEDS AT THE [facility] Last Admin: 01/13/18 08:56 Dose: 40 mg Phenol (Chloraseptic [place] 180 Ml Bot) 0 ml PO PRN PRN PRN Reason: Sore Throat Risperidone (Risperidone) 0.5 mg PO HS COUNTS INCLUDE 234 BEDS AT THE [facility] Last Admin: 01/13/18 21:39 Dose: Not Given Senna (Senokot) 2 tab PO HSPRN PRN PRN Reason: Constipation Sodium Chloride ([place] Nasal [place] 0.65%) 0 ml EA NARE QIDPRN PRN PRN Reason: Nasal Congestion Sodium Chloride (Flush - Normal Saline) 10 ml IVF Q12HR DEENA Last Admin: 01/13/18 21:39 Dose: Not Given Sodium Chloride (Flush - Normal Saline) 10 ml IVF PRN PRN PRN Reason: Saline Flush
--- NOTE | 2018-01-14 09:59 | PDOC.CTH ---
Cardiology Progress Note - Subjective The Pt seen and examined. No overnight events. He denied CP or discomfort in his chest, SOB or other cardiac complaints. The pt's family would like to discuss with Case management about the pt's care plan. - Objective Vital Signs Temp Pulse Resp BP BP Pulse Ox 01/14/18 09:34 168/80 H 01/14/18 09:28 98.6 F 90 16 171/83 H 95 01/14/18 04:00 98.5 F 86 20 174/77 H 97 Weight 171 lb 11.2 oz 01/13/18 01/14/18 01/15/18 06:59 06:59 06:59 Intake Total 1260 800 Output Total 250 650 Balance 1010 150 - Physical Examination Neck: no JVD present Lungs: CTA Heart: RRR Abdomen: soft Extremities: other: (no edema) - Telemetry Telemetry Rhythm: SR with PVCs 89 - Labs Result Diagrams: 01/13/18 13:40 01/13/18 13:40 Troponin/CKMB CK-MB (CK-2) 4.9 ng/mL (0-6.6) 01/11/18 02:12 Troponin I 0.155 ng/mL (< 0.028) H 01/11/18 08:06 - Assessment/Plan 1. Chest pain - No more CP or discomfort or other cardiac complaints this AM. 2. HTN - Start Norvasc 5mg PO daily; cont. monitor 3. Dyslipidemia - On statin 4. PVD with Hx of Bilat. Iliac stent - stable; cont. monitor 5. COPD - stable with RA 6. Hypothyroidism - managed by PCP 7. Anxiety and depression - family at bedside MAR reviewed Review of Systems - Review of Systems Constitutional: reports: no symptoms reported EENTM: reports: no symptoms reported Respiratory: reports: no symptoms reported Cardiac (ROS): reports: no symptoms reported ABD/GI: reports: no symptoms reported : reports: no symptoms reported Musculoskeletal: reports: no symptoms reported Skin: reports: no symptoms reported
[2018-01-14] MEDS ORDERED: Amlodipine 5 MG TAB PO SCH (10:00)
--- NOTE | 2018-01-14 11:10 | DIS ---
DATE OF ADMISSION: 01/11/2018 DATE OF DISCHARGE: 01/14/2018 PRIMARY CARE PHYSICIAN: Dr. Rafael Mora. DISCHARGE DISPOSITION: care home home versus assisted living with Home Health. PRIMARY DISCHARGE DIAGNOSES: Chest pain, ruled out acute coronary syndrome, elevated troponin due to demand ischemia. SECONDARY DISCHARGE DIAGNOSES: Peripheral vascular disease, Parkinson's disease, hypothyroidism, gas troesophageal reflux disease, dyslipidemia, chronic obstructive pulmonary disease, anxiety, and depre ssion. PRIMARY PROCEDURE/OPERATION: None. RADIOLOGICAL INVESTIGATION: Chest x-ray showed no acute cardiopulmonary process. CT brain negative for any acute intracranial process. SIGNIFICANT LABORATORY DATA: WBC 10.4, hemoglobin 13.9, platelets 369. Sodium 138, potassium 4.1, B UN 19, creatinine 1.21, calcium 9.3, troponin 0.155. BNP 272.3. Liver enzymes normal. Total CK 443 . DISCHARGE MEDICATIONS: Tylenol Arthritis 650 mg p.o. q.i.d. p.r.n., aspirin 325 mg p.o. daily, Lizy et CR 25/100 one tablet q.i.d., Celexa 30 mg p.o. daily, Plavix 75 mg p.o. daily, gabapentin 200 mg p .o. daily, Synthroid 150 mcg p.o. daily, lisinopril 20 mg p.o. daily, Mobic 7.5 mg p.o. daily, omepra zole 20 mg p.o. daily, pravastatin 80 mg p.o. at bedtime, risperidone 0.5 mg p.o. at bedtime. CONTRAINDICATIONS: None. CODE STATUS: FULL CODE. INPATIENT CONSULTANTS: Dr. Armstrong and Dr. Wilson was following while in hospital. TEST RESULTS PENDING ON DISCHARGE: None. ALLERGIES: PEPCID and PENICILLIN. DISCHARGE PLAN: Post hospital, patient is advised to follow up with primary care physician as instru cted. HOSPITAL COURSE: A 67-year-old male with above-mentioned medical problem who was admitted by Dr. Florencio adams. Please see his H&P for further details. Patient is living at assisted living facility and he wa s referred to our hospital for anxiety attack and he was having chest discomfort. He also had elevat ed troponin. His chest discomfort was we attributed to be due to most likely from anxiety neurosis, but he had elevated troponin and that is why we kept in hospital. We treated him medically with Love nox. Cardiology was consulted. Cardiology recommended over the weekend that Dr. Wilson will decide ab out cardiac catheterization. This patient also had episode of fall in hospital and he was having sunil quent fall and that is why we did PT, OT consultation and discharge planning. Physical therapy recom mends to go assisted living facility with home health. Family member also requested to place him to a assisted home if possible and we are consulting bottle caser to work on this. Otherwise, this patient is medically stable. Cardiology has not deci ded to do cardiac catheterization during this admission. He is medically stable. He does not have a ny further chest pain or any cardiac symptoms. He will continue the above-mentioned medication as ab ove. The patient is seen and examined at bedside today. Please see my progress note from today for furthe r details. Patient is going to follow with primary care physician after discharge.
[2018-01-14 16:01] VITALS: TEMP 98.7
[2018-01-14 16:36] VITALS: BP 142/82
[2018-01-15] MEDS ORDERED: Amlodipine 5 MG TAB PO SCH (09:00)
== END 2018-01-14 16:36 | DRG 311 ==
LOC: ERS 01:48 → 2SW 07:19 → OBSVTOIN 08:59 → 2NO 12:23
PROVIDERS: ADMIT Internal Medicine; ATTEND Internal Medicine
DX: I24.8 Other forms of acute ischemic heart disease (principal); G20 Parkinson's disease; J44.9 Chronic obstructive pulmonary disease, unspecified; I73.9 Peripheral vascular disease, unspecified; E03.9 Hypothyroidism, unspecified; K21.9 Gastro-esophageal reflux disease without esophagitis; E78.5 Hyperlipidemia, unspecified; F41.0 Panic disorder [episodic paroxysmal anxiety]; F32.9 Major depressive disorder, single episode, unspecified; I10 Essential (primary) hypertension; I25.10 Atherosclerotic heart disease of native coronary artery without angina pectoris; Z87.891 Personal history of nicotine dependence; Z88.0 Allergy status to penicillin; Z88.8 Allergy status to other drugs, medicaments and biological substances; Z79.02 Long term (current) use of antithrombotics/antiplatelets; Z79.82 Long term (current) use of aspirin; Z79.899 Other long term (current) drug therapy
CPT/HCPCS: 36415; 70450; 71045; 80048; 80053; 82553; 82565; 83880; 84484; 85014; 85018; 85025; 85049; 93005; 94760; G8978-GP-CL; G8979-GP-CJ; G8987-GO-CJ; G8988-GO-CH; J0360; J1650

== ENCOUNTER 2018-02-26 14:48 | Inpatient (IN) | payer MEDICARE ==
[~2018-02-26 14:48] MED LIST: ISOVUE-370 76%-LOCM 1 ML ONE
--- NOTE | 2018-02-26 15:03 | RAD ---
SINGLE VIEW OF THE CHEST: Comparison: 01-11-18 History: Cough. FINDINGS: Single view of the chest shows a normal sized cardiomediastinal silhouette. There is no evidence of c onsolidation, mass, or pleural effusion. The bones are unremarkable. IMPRESSION: No evidence of acute cardiopulmonary disease. POS: [facility]
[2018-02-26 15:16] LABS: #Lymphocytes 0.5 thou/uL (1.20-3.40); #Monocytes 1.2 thou/uL (0.11-0.59); #Neutrophils 8.6 thou/uL (1.40-6.50); %Basophils 0.2 % (0.0-1.0); %Eosinophils 0.2 % (0.0-10.0); %Lymphocytes 4.5 % (21.0-51.0); %Monocytes 11.7 % (0.0-10.0); %Neutrophils 83.4 % (42.0-75.0); Hemoglobin 12.3 g/dL (14.0-18.0); Mean Corpuscular HGB CONC 32.6 g/dL (32.0-36.0); Mean Corpuscular Hemoglobin 31.3 pg (27.0-31.0); Mean Platelet Volume 7.5 fL (7.4-10.4); Platelet Count 227 thou/uL (130-400); RBC Distribution Width 13.2 % (11.5-14.5); Red Blood Cell (RBC) Count 3.93 mill/uL (4.70-6.10); White Blood Cell (WBC) Count 10.3 thou/uL (4.8-10.8)
[2018-02-26 15:37] LABS: ALT (SGPT) 242 U/L (8-55); AST (SGOT) 432 U/L (5-34); Alkaline Phosphatase 218 U/L (40-150); Anion Gap 15 mmol/L (10-20); BUN (Urea Nitrogen) 26 mg/dL (8.4-25.7); Bilirubin, Total 0.7 mg/dL (0.2-1.2); Calc. Creatinine Clearance 0 mL/min (70-130); Calcium 9.5 mg/dL (7.8-10.44); Carbon Dioxide 21 mmol/L (23-31); Chloride 107 mmol/L (98-107); Estimated GFR-MDRD 44; Globulin 2.7 g/dL (2.4-3.5); Glucose 138 mg/dL (80-115); Protein, Total 6.7 g/dL (5.8-8.1); Sodium 139 mmol/L (136-145)
[2018-02-26 15:50] LABS: Lipase 1885 U/L (8-78)
[2018-02-26] MEDS ORDERED: Piperacillin/Tazobactam 3.375 GM VIAL ONE (16:22)
[2018-02-26 16:36] LABS: Bilirubin Negative (Negative); Blood, Urine Negative (Negative); Clarity CLEAR (Clear); Glucose, Urine (Dipstick) Negative (Negative); Leukocyte Negative (Negative); Nitrite Negative (Negative); Protein, Urine (Dipstick) 30 mg/dL (Neg-Trace); Specific Gravity, Urine 1.021 (1.002-1.036); pH, Urine 5.5 (5.0-9.0)
[2018-02-26 16:37] LABS: Bacteria/HPF None Seen HPF (None Seen); Hyaline Casts/LPF 7-10 HYALINE CAST LPF (0-3 Hyaline); Pathc Cast-AUWi Flag 1.45 (0-2.49); Squamous Epithelial 0-3 HPF (0-3)
[2018-02-26 16:43] LABS: Renal Epithelial None Seen HPF (0-3); Transitional Epithelial NONE SEEN HPF (0-3)
--- NOTE | 2018-02-26 17:49 | CT ---
NONCONTRAST CT HEAD: 02/26/18 HISTORY: Injury after a fall. Fever. Patient hit head when falling. COMPARISON: 01/12/18. FINDINGS: Again noted are chronic small vessel ischemic changes and cerebral volume loss similar to the prior e xam. There is a stable small remote lacunar infarction within the left thalamus. There is no evidence of an acute cortical infarction, hemorrhage, mass effect, or midline shift. Jhonathan cisterna magna is a gain seen. There is no intraparenchymal or extra-axial hemorrhage. No mass effect or midline shift is seen. There is no evidence of a calvarial fracture. The visualized paranasal sinuses and mastoid air cells are clear. IMPRESSION: 1. No acute intracranial abnormalities demonstrated. 2. Stable chronic small vessel ischemic changes with cerebral volume loss. 3. Stable small remote lacunar infarction left thalamus. POS: [facility]
--- NOTE | 2018-02-26 17:52 | CT ---
CERVICAL SPINE CT NONCONTRAST: 02/26/18 INDICATION: Fall with neck injury, pain. FINDINGS: Craniocervical junction is intact. There is mild multilevel degenerative change of the cervical spine . No significant subluxation or retropulsion of bone into the vertebral canal. No acute facet malalig nment. IMPRESSION: No acute osseous abnormality. Incidental note of emphysema at the upper lung zones. Correlate clinically. There is also incomplete ly assessed wall thickening of the esophagus. As indicated, this could be further evaluated with doub le contrast upper GI, as clinically indicated. POS: [facility]
--- NOTE | 2018-02-26 17:58 | CT ---
ABDOMEN AND PELVIC CT WITH CONTRAST 02/26/18 INDICATION: Abdominal pain, elevated liver function enzymes. FINDINGS: There is abnormal inflammation and thickening of the duodenum with surrounding inflammation. There is also pericholecystic inflammation. There is mild prominence and hypodensity of the extrahepatic bili arlene ductal system, with the imaged common duct measuring a diameter of approximately 13 mm. There is mild fullness and slight edema involving head and uncinate process of the pancreas. Diverticulum invo lves the third portion of the duodenum. There is no pneumoperitoneum. No evidence of focal hepatic o r splenic lesion. No hydronephrosis or adrenal mass. there are dependent patchy opacities at each iglesia g base. Scattered atherosclerotic vascular disease is present. Aortobiiliac stent is seen. Mild wall prominence of the urinary bladder is present. Limited evaluation of the bowel without enteric contras t. There is mild superior end plate irregularity and sclerosis of T12. IMPRESSION: Findings indicative of duodenitis. There is adjacent pericholecystic inflammation as well. Prominence of the extrahepatic biliary ductal system with slight thickening/hyperdensity. Correlate w ith biliary laboratory values. No radiopaque ductal stone is seen within limitations. There is prominence and edema of the head and uncinate process of the pancreas. A focal pancreatitis versus underlying mass are considerations. Recommend gastroenterology consultation, and continued elpidio ging following upon resolution of acute symptoms to exclude possibility of underlying mass. Code T POS: [facility]
[2018-02-26 19:07] LABS: Lactic Acid 2.1 mmol/L (0.5-2.2)
[2018-02-26] MEDS ORDERED: Ondansetron ODT 4 MG TAB PO PRN (21:17)
[2018-02-26] MEDS ORDERED: Morphine 4 MG/ML VIAL SLOW IVP PRN (21:17)
[2018-02-26] MEDS ORDERED: Ondansetron HCl/PF 4 MG/2 ML Vial IVP PRN (21:17)
[2018-02-26] MEDS ORDERED: cloNIDine 0.1 MG TAB PO PRN (21:17)
[2018-02-26] MEDS ORDERED: Cefepime 2 GM in Sodium Chloride 0.9% 100 ML IVPB SCH (21:17)
[2018-02-26] MEDS: Sodium Chloride 0.9% 1,000 ML IV SCH (23:20)
[2018-02-26] MEDS: Cefepime 2 GM, Syringe 2.5 ML in Sodium Chloride 0.9% 10 ML SLOW IVP SCH (23:21)
[2018-02-26] MEDS: Acetaminophen 500 MG TAB PO PRN (23:21)
[2018-02-26] MEDS: metroNIDAZOLE 500 MG in Premix Bag 1 BAG IVPB SCH (23:21)
[2018-02-26] MEDS ORDERED: risperiDONE 0.25 MG TAB PO SCH (23:30)
--- NOTE | 2018-02-27 00:32 | HP ---
DATE OF ADMISSION: 02/26/2018 PRIMARY CARE PHYSICIAN: Rafael Mora M.D. CHIEF COMPLAINT: Abdominal pain and diarrhea. HISTORY OF PRESENT ILLNESS: This is a 67-year-old male who resides at [facility], com plaining of general weakness, diarrhea, fever, and general malaise. The patient states the symptoms began in the last 24 hours and have progressed with profound weakness with resultant fall. The patie nt denied any specific loss of consciousness or head injury, but states he has been generally feeling weak in the last several hours prior to evaluation in the emergency room. Initial evaluation by EMS reported a fever of 102.4 degrees Fahrenheit at which point patient was transferred to the emergency department for evaluation. Initial evaluation in the emergency room including CT of the brain showe d no acute intracranial process. CT of the abdomen and pelvis performed on 02/26/2018 showed promine nce of the extrahepatic biliary ductal system and thickening and hyperdensity indicative of a duodeni tis. There was also noted pericholecystic inflammatory process. Prominent edema of the head and unc inate process of the pancreas was also noted. The patient did meet sepsis criteria and received IV f luids as well as vancomycin. The patient's metabolic survey revealed a transaminitis as well as elev ated lipase of 1885. The patient was referred to the Hospitalist Service for admission. PAST MEDICAL HISTORY: 1. Coronary artery disease. 2. Peripheral vascular disease. 3. Parkinson's disease. 4. Hypothyroidism. 5. Gastroesophageal reflux disease. 6. Dyslipidemia. 7. Chronic obstructive pulmonary disease. 8. Anxiety/depression. 9. History of falls. 10. History of peripheral neuropathy. 11. History of skin cancers. PAST SURGICAL HISTORY: 1. Status post tonsillectomy. 2. Status post cardiac stent with PCI. CURRENT MEDICATIONS: Based on recent admission 01/11/2018 showed, 1. Aspirin 325 mg 1 tab p.o. daily. 2. Sinemet-CR 25/100 mg 1 tab p.o. q.i.d. 3. Celexa 30 mg p.o. daily. 4. Plavix 75 mg p.o. daily. 5. Gabapentin 300 mg p.o. daily. 6. Levothyroxine 150 mcg p.o. daily. 7. Lisinopril 20 mg p.o. daily. 8. Meloxicam 7.5 mg p.o. daily. 9. Omeprazole 20 mg p.o. daily. 10. Pravachol 80 mg p.o. daily. 11. Risperdal 0.5 mg p.o. at bedtime. ALLERGIES: PENICILLIN and PEPCID. FAMILY HISTORY: Mother with peripheral artery disease. Father had COPD. SOCIAL HISTORY: . Resides at [facility]. History of prior falls. Former tobacco user, quit in 2017. No alcohol or illicit drug use. REVIEW OF SYSTEMS: The following complete review of systems was negative, unless otherwise mentioned in the HPI or below: Constitutional: Weight loss or gain, ability to conduct usual activities. Sk in: Rash, itching. Eyes: Double vision, pain. ENT/Mouth: Nose bleeding, neck stiffness, pain, te nderness. Cardiovascular: Palpitations, dyspnea on exertion, orthopnea. Respiratory: Shortness of breath, wheezing, cough, hemoptysis, fever or night sweats. Gastrointestinal: Poor appetite, abdom inal pain, heartburn, nausea, vomiting, constipation, or diarrhea. Genitourinary: Urgency, frequenc y, dysuria, nocturia. Musculoskeletal: Pain, swelling. Neurologic/Psychiatric: Anxiety, depressio n. Allergy/Immunologic: Skin rash, bleeding tendency. PHYSICAL EXAMINATION: VITAL SIGNS: On admission, blood pressure is 158/81, pulse 102, respiratory rate 22, temperature 102 .4 degrees Fahrenheit, O2 saturation 91% on room air. GENERAL APPEARANCE: This is a 67-year-old male lying on the hospital bed, ill appearing, f lushed, responds to questions, in mild distress. HEENT: Pupils are equal, round, and reactive to light and accommodation. Extraocular muscles are in tact. Bilateral conjunctival injection noted. Nares patent. OP is clear. Oral mucosa dry appearin g. Teeth in fair repair. NECK: Supple, no cervical adenopathy, no thyromegaly, no carotid bruits, no JVD appreciated. Cervic al spine with full active and passive range of motion. No meningeal signs appreciated. CHEST: Lungs are clear to auscultation bilaterally. CARDIOVASCULAR: S1, S2 with tachycardia. No murmur or gallop appreciated. ABDOMEN: Rounded with tenderness to palpation in the midepigastrium. Bowel sounds are positive in a ll four quadrants. There is no palpable mass. No rebound or guarding noted. EXTREMITIES: Warm and dry with fair turgor. No clubbing, cyanosis or asymmetric edema appreciated. Pulses palpable distally at the dorsalis pedis, posterior tibial, and popliteal arteries bilaterally . Capillary refill less than 2 seconds. NEUROLOGIC: Cranial nerves II-XII are grossly intact. No focal or lateralizing signs appreciated. PERTINENT LABORATORY AND X-RAY FINDINGS: Sodium 139, potassium 4.0, chloride 107, CO2 of 21, BUN 26, creatinine 1.58 with estimated GFR of 44, glucose 138. Lactic acid level ranged between 2.1-2.5, ca lcium 9.5, AST 432, ALT 242, alkaline phosphatase 218, lipase 1885, albumin 4.0. CBC showed a white blood cell count of 10.3, hemoglobin 12, hematocrit 38, MCV 96, platelet count 227 with 83% neutrophi josue. Urinalysis positive for protein. CT of the abdomen and pelvis dated 02/26/2018 showed potentia l duodenitis. Pericholecystic inflammatory process noted. Edema of the head and uncinate process of the pancreas consistent with pancreatitis. CT of the brain dated 02/26/2018 showed no acute intracr anial process. Chronic ischemic white matter changes noted. CT of the cervical spine dated 02/27/20 18 showed no acute fracture or dislocation. Portable chest x-ray dated 02/26/2018 showed no acute ca rdiopulmonary process. EKG dated 02/26/2018 by my interpretation shows a sinus mechanism with heart rates in the 90s. Normal R-wave progression noted in the precordial leads. Premature atrial complex es noted. Normal axis. T-wave flattening in the lateral leads. T-wave inversion noted in leads V4, V6 and leads 1. ASSESSMENT AND PLAN: 1. Sepsis. The patient will be admitted to the surgical cline. Suspect cholecystitis with associate d pancreatitis/duodenitis. We will continue IV Flagyl 500 mg q.8 hours with additional cefepime 2 gr ams IV q.12 hours due to PENICILLIN allergy. We will continue general sepsis protocol. Serial lacta te evaluation. We will continue IV fluids with normal saline at 125 mL per hour. Blood and urine cu ltures pending. 2. Pancreatitis. We will consult GI service for evaluation. No specific evidence of cholelithiasis or choledocholithiasis on CT imaging. Continue serial lipase evaluation. Clear liquids. Check fas ting lipid profile in the a.m. 3. Acute kidney injury. Continue intravenous fluids with normal saline. Avoid nephrotoxic agents a nd CONTRAST MEDIA. Repeat creatinine in the a.m. 4. Transaminitis. Suspect secondarily to #1 and #2. 5. We will continue to trend LFTs and repeat in the a.m. Avoid hepatotoxic medications. GI consult ation in the a.m. 6. Hypertension. We will resume home antihypertensive regimen and monitor clinical response. 7. Prophylaxis. Sequential compression devices while in bed. Protonix 40 mg IV q.24 hours. PT devendra luation in the a.m. 8. Code status is FULL. Surrogate medical decision maker is Jack Al.
[2018-02-27] MEDS: metroNIDAZOLE 500 MG in Premix Bag 1 BAG IVPB SCH ×3 (06:25→21:06)
[2018-02-27] MEDS: Sodium Chloride 0.9% 1,000 ML IV SCH ×2 (06:26→08:40)
[2018-02-27 06:42] VITALS: BMI 26.8
[2018-02-27 08:28] LABS: ALT (SGPT) 178 U/L (8-55); AST (SGOT) 145 U/L (5-34); Albumin 3.7 g/dL (3.4-4.8); Alkaline Phosphatase 176 U/L (40-150); Anion Gap 12 mmol/L (10-20); BUN (Urea Nitrogen) 24 mg/dL (8.4-25.7); Calc. Creatinine Clearance 56 mL/min (70-130); Calcium 9.2 mg/dL (7.8-10.44); Carbon Dioxide 22 mmol/L (23-31); Cardiac Risk 2.9 (Less than 4.5); Chloride 108 mmol/L (98-107); Cholesterol 111 mg/dl (< 200 Desired); Estimated GFR-MDRD 50; Globulin 2.6 g/dL (2.4-3.5); Glucose 79 mg/dL (80-115); HDL Cholesterol 38 mg/dL (>60 Neg Risk); LDL Cholesterol, Calculated 62 mg/dL; Lipase 389 U/L (8-78); Potassium 4.2 mmol/L (3.5-5.1); Protein, Total 6.3 g/dL (5.8-8.1); Sodium 138 mmol/L (136-145); Triglycerides 56 mg/dL (Less than 150)
[2018-02-27 08:30] LABS: Hemoglobin 11.8 g/dL (14.0-18.0); Mean Corpuscular Hemoglobin 30.8 pg (27.0-31.0); Mean Corpuscular Volume 96.3 fl (80.0-94.0); Mean Platelet Volume 7.8 fL (7.4-10.4); Platelet Count 196 thou/uL (130-400); RBC Distribution Width 13.4 % (11.5-14.5); Red Blood Cell (RBC) Count 3.83 mill/uL (4.70-6.10); White Blood Cell (WBC) Count 10.4 thou/uL (4.8-10.8)
[2018-02-27] MEDS: Pantoprazole 40 MG VIAL IVP SCH ×2 (08:36)
[2018-02-27] MEDS: risperiDONE 0.25 MG TAB PO SCH ×2 (08:36→21:04)
[2018-02-27 09:28] LABS: Band 6 % (5-11); Eosinophils 3 % (0-10); Lymphocytes 20 % (21-51); MDiff Complete? YES; Monocytes 6 % (0-10); Neutrophil 64 % (42-75); RBC Morphology Normal; Reactive Lymphocytes 1 % (0-10)
[2018-02-27] MEDS: Cefepime 2 GM, Syringe 2.5 ML in Sodium Chloride 0.9% 10 ML SLOW IVP SCH ×2 (09:54→21:06)
--- NOTE | 2018-02-27 10:28 | PDOC.PN ---
- Subjective Encounter Start Date: 02/27/18 Encounter Start Time: 10:26 Subjective: feels much better,hungry - Objective Resuscitation Status: Resuscitation Status FULL:Full Resuscitation MAR Reviewed: Yes Vital Signs & Weight: Vital Signs (12 hours) Temp Pulse Resp BP BP Pulse Ox 02/27/18 09:41 167/74 H 02/27/18 08:25 98.8 F 88 16 94 L 02/27/18 07:20 98.8 F 88 16 174/78 H 94 L 02/27/18 05:00 99.5 F 84 19 164/78 H 95 02/26/18 23:12 100.4 F H 91 18 159/79 H 93 L Weight Weight 176 lb 8 oz I&O: 02/26/18 02/27/18 02/28/18 06:59 06:59 06:59 Intake Total 920 Output Total 325 Balance 595 Result Diagrams: 02/27/18 06:57 02/27/18 06:30 Phys Exam - Physical Examination Neck: no JVD Respiratory: clear to auscultation bilateral Cardiovascular: RRR, no significant murmur Gastrointestinal: soft, non-tender, positive bowel sounds Musculoskeletal: edema present Dx/Plan (1) Pancreatitis Code(s): K85.90 - ACUTE PANCREATITIS WITHOUT NECROSIS OR INFECTION, UNSP Status: Acute Qualifiers: Chronicity: acute Pancreatitis type: unspecified pancreatitis type Acute pancreatitis complication: unspecified Qualified Code(s): K85.90 - Acute pancreatitis without necrosis or infection, unspecified (2) Pancreatic mass Status: Acute (3) GERD (gastroesophageal reflux disease) Code(s): K21.9 - GASTRO-ESOPHAGEAL REFLUX DISEASE WITHOUT ESOPHAGITIS Status: Chronic Qualifiers: Esophagitis presence: esophagitis presence not specified Qualified Code(s) : K21.9 - Gastro-esophageal reflux disease without esophagitis (4) Hypothyroidism Code(s): E03.9 - HYPOTHYROIDISM, UNSPECIFIED Status: Chronic Qualifiers: Hypothyroidism type: unspecified Qualified Code(s): E03.9 - Hypothyroidism , unspecified (5) Parkinson disease Code(s): G20 - PARKINSON'S DISEASE Status: Chronic - Plan slow iv fluids, start po liquids -: cont home meds, selected -: await GI consult * .
[2018-02-27] MEDS: hydrALAZINE 20 MG/ML VIAL SLOW IVP PRN ×2 (11:18→16:18)
--- NOTE | 2018-02-27 13:53 | CON ---
DATE OF CONSULTATION: 02/27/2018 HISTORY OF PRESENT ILLNESS: The patient is a 67-year-old male who was in normal state of h ealth until 24 hours prior to the admission when he reports he was not feeling well and having abdomi nal discomfort. He was also noted to have fever and was transported to the emergency room. CT was p erformed showed prominence of the extrahepatic biliary ductal system and thickening and hyperdensity of that duct. There was also some duodenitis and enlargement of the pancreatic head. He was doing b thomas and then according to family members, his fever returned today. PAST MEDICAL HISTORY: Significant for coronary artery disease, peripheral vascular disease, Parkinso n disease, hypothyroidism, gastroesophageal reflux disease, hyperlipidemia, COPD and peripheral neuro parrish. PAST SURGICAL HISTORY: Includes tonsillectomy and cardiac stent placement. CURRENT MEDICATIONS: Include aspirin, Sinemet, Celexa, Plavix, gabapentin, levothyroxine, lisinopril , meloxicam, omeprazole, Pravachol and Risperdal. ALLERGIES: Include PENICILLIN and PEPCID. FAMILY HISTORY: Negative for GI or liver disease. SOCIAL HISTORY: He is in an assisted living. Does not smoke or drink. REVIEW OF SYSTEMS: Unobtainable as the patient is an extremely poor historian. PHYSICAL EXAMINATION: GENERAL: Shows an older white male in no acute distress. VITAL SIGNS: Temperature is 98.4, pulse 88, respiratory rate is 16 and blood pressure 184/78. HEENT: Unremarkable. NECK: Supple. CHEST: Clear. CARDIOVASCULAR: Regular rate and rhythm. ABDOMEN: Soft and nontender, without organomegaly or masses. Bowel sounds are present and normoacti ve. RECTAL: Deferred. EXTREMITIES: Normal. NEUROLOGIC: Nonfocal. LABORATORY DATA: Shows on admission a total bilirubin of 0.7, AST 432, ALT 242, alkaline phosphatase 218, lipase of 1885. Repeat lipase showed 741 and today's lipase is 389. AST today is 145 and ALT is 178. Admission hemoglobin is 12.3, it dropped to 12.8. ASSESSMENT: 1. Biliary pancreatitis. 2. Possible acute cholecystitis. RECOMMENDATIONS: 1. N.p.o. 2. Surgical opinion. 3. No need for ERCP at this time since the patient's LFTs seems to be trending down.
--- NOTE | 2018-02-27 16:53 | HP ---
HISTORY OF PRESENT ILLNESS: Mikaela is a patient with psychiatric issues probably schizoaffective dis order, schizophrenia, admitted to [facility] who developed abdominal pain, fever, brou ght into the hospital yesterday and found to have a white count of 10, hemoglobin of 12, lipase of 18 85, carbon dioxide 21, bilirubin 0.7, AST of 432, ALT of 242, alkaline phosphatase 218. Today, his A ST and ALT have improved. Lipase down to 389. He has been started on liquid diet. Abdominal pelvic CAT scan obtained for 02/26/2018 reveals prominent extrahepatic biliary system, pancreatitis, and bi le duct 13 mm. No evidence of other mass, pancreatic. There was no mention on his CAT scan of galls tones. Abdominal exam did suggest non-tenderness on today's exam. Dr. Morfin called me regarding lapa roscopic cholecystectomy. Intraoperative cholangiogram, then only ERCP if necessary. ALLERGIES: PENICILLIN. TOBACCO: None. ALCOHOL: None. MEDICATIONS: As an outpatient, Seroquel 50 mg b.i.d., clonazepam 0.5 mg at bedtime, diphenhydramine 5 mg at bedtime, Celexa 30 mg daily, aspirin 325 mg daily, lisinopril 20 mg daily, levothyroxine 150 mcg daily, gabapentin 200 mg b.i.d., Plavix 75 mg a day, meloxicam 7.5 mg daily, risperidone 0.5 mg b .i.d., pravastatin 40 mg daily, omeprazole 20 mg daily. The patient has been started on Flagyl and c efepime. PAST SURGICAL HISTORY: There is reported to have peripheral stents for PAD placed by Dr. Urbina last year. His cardiac stress test two months ago in this facility was negative for ischemia status. CT scan of the head on admission was unremarkable. Chest x-ray is unremarkable. The patient had a card iac stress test 12/18/2016 with normal ejection fraction, no evidence of ischemia. On 02/22/2017, Dr Azalea Urbina did an aortogram, bilateral runoff with right common iliac stent and left common iliac artery stent. There has been no history of coronary disease. The patient has been seen by Dr. Wilson in the past. PHYSICAL EXAMINATION: VITAL SIGNS: 5 foot 8, 176 pounds, 26 BMI. HEENT: Unremarkable. LUNGS: Clear to auscultation. CARDIAC: Regular rate and rhythm without murmur or gallop. ABDOMEN: Soft. Minimal tenderness epigastric, right upper quadrant, no guarding, rebound. EXTREMITIES: Unremarkable. LABORATORY DATA: As noted above. ASSESSMENT AND PLAN: 1. Biliary pancreatitis. We will obtain ultrasound of the gallbladder today and plan laparoscopic v ideo cholecystectomy. Cholangiogram is tomorrow. If cholangiogram revealed or positive, then ERCP w ill be necessary. We will contact Dr. Morfin. Risks and benefits infection, bleeding, reoperation, bi liary visceral injury, biliary injury, possible open procedure discussed, he consents. 2. PENICILLIN allergy. 3. Poor mobility, living in assisted living. 4. Psychiatric illness.
--- NOTE | 2018-02-27 20:43 | ULT ---
GALLBLADDER ULTRASOUND: 02/27/18 CLINICAL HISTORY: Pancreatitis. FINDINGS: There is increased echogenicity of the hepatic parenchyma which is slightly prominent in size. No foc al hepatic lesion evident. There is moderate distention of the gallbladder with borderline thickening of the gallbladder wall and a mild degree of pericholecystic edema. Martin's sign is reported as neg ative. There is abnormal dilatation of the of the common duct as was depicted on preceding CT exam, p revious day. No discernible cholelithiasis or identifiable choledocholithiasis. IMPRESSION: 1. Moderately distended gallbladder with mild wall thickening and pericholecystic edema. Correla te clinically for evidence of cholecystitis. 2. Biliary ductal dilatation. Correlate with laboratory values for evaluation of a biliary obstr uctive process. POS: FRIDA
[2018-02-27] MEDS: Enoxaparin Sodium 40 MG/0.4 ML SYRINGE SC SCH (21:05)
[2018-02-27] MEDS: Acetaminophen 500 MG TAB PO PRN (23:28)
[2018-02-28] MEDS: metroNIDAZOLE 500 MG in Premix Bag 1 BAG IVPB SCH ×2 (05:40→18:55)
[2018-02-28] MEDS ORDERED: Lactated Ringer's 1,000 ML IV SCH (08:00)
--- NOTE | 2018-02-28 08:50 | PDOC.PN ---
- Subjective Encounter Start Date: 02/28/18 Encounter Start Time: 08:49 Subjective: no distress - Objective Resuscitation Status: Resuscitation Status FULL:Full Resuscitation MAR Reviewed: Yes Vital Signs & Weight: Vital Signs (12 hours) Temp Pulse Resp BP BP Pulse Ox 02/28/18 08:00 98.7 F 71 20 165/79 H 95 02/28/18 04:00 98.7 F 62 16 129/69 94 L 02/27/18 23:19 184/68 H 02/27/18 23:07 99.6 F 79 20 184/68 H 93 L 02/27/18 21:06 99.3 F 94 20 95 Weight Weight 176 lb 8 oz I&O: 02/27/18 02/28/18 03/01/18 06:59 06:59 06:59 Intake Total 920 1440 Output Total 325 550 Balance 595 890 Result Diagrams: 02/27/18 06:57 02/27/18 06:30 Phys Exam - Physical Examination Neck: no JVD Respiratory: clear to auscultation bilateral Cardiovascular: RRR, no significant murmur Gastrointestinal: soft, non-tender, positive bowel sounds Musculoskeletal: edema present Dx/Plan (1) Pancreatitis Code(s): K85.90 - ACUTE PANCREATITIS WITHOUT NECROSIS OR INFECTION, UNSP Status: Acute Qualifiers: Chronicity: acute Pancreatitis type: unspecified pancreatitis type Acute pancreatitis complication: unspecified Qualified Code(s): K85.90 - Acute pancreatitis without necrosis or infection, unspecified (2) Pancreatic mass Status: Acute (3) GERD (gastroesophageal reflux disease) Code(s): K21.9 - GASTRO-ESOPHAGEAL REFLUX DISEASE WITHOUT ESOPHAGITIS Status: Chronic Qualifiers: Esophagitis presence: esophagitis presence not specified Qualified Code(s) : K21.9 - Gastro-esophageal reflux disease without esophagitis (4) Hypothyroidism Code(s): E03.9 - HYPOTHYROIDISM, UNSPECIFIED Status: Chronic Qualifiers: Hypothyroidism type: unspecified Qualified Code(s): E03.9 - Hypothyroidism , unspecified (5) Parkinson disease Code(s): G20 - PARKINSON'S DISEASE Status: Chronic - Plan planned cholecystectomy today, FU post * .
[2018-02-28] MEDS: Pantoprazole 40 MG VIAL IVP SCH ×2 (09:41)
[2018-02-28] MEDS: risperiDONE 0.25 MG TAB PO SCH ×2 (09:47→21:58)
[2018-02-28] MEDS: Cefepime 2 GM, Syringe 2.5 ML in Sodium Chloride 0.9% 10 ML SLOW IVP SCH (09:47)
--- NOTE | 2018-02-28 11:36 | PQF ---
SILVANA JOSE COUNCIL C MD [id number] SURG A- [id number] CLINICAL DOCUMENTATION IMPROVEMENT CLARIFICATION FORM: ICD-10 Updated PLEASE DO AN ADDENDUM TO THE PROGRESS NOTE WITH ANY DOCUMENTATION UPDATES OR ADDITIONS AND CARRY THROUGH TO DC SUMMARY. THANK YOU. DATE: 02-28-18 ATTN: DR. SHARMILA MANLEY Please exercise your independent, professional judgment in responding to the clarification form. Clinical indicators are provided on the bottom of this form for your review Please check appropriate box(s) to clarify if the following diagnosis has been ruled in or ruled out: SEPSIS [ x ] Ruled in diagnosis [ ] Continue to treat [ x] Resolved [ ] Ruled out diagnosis [ ] Cannot rule out diagnosis [ ] Other diagnosis [ ] Unable to determine For continuity of documentation, please document condition throughout progress notes and discharge summary. Thank You. CLINICAL INDICATORS - SIGNS / SYMPTOMS / LABS EMS: TEMP 102.4 ER: TEMP 101.3 ORAL 89% ON RA - GIVEN 2LNC RESP 18 - 22 PULSE 82 - 102 LABS: 4- LACTIC ACID 2.5 ER DX: ACUTE PANCREATITIS; DUODENITIS; POSS CHOLECYSTITIS H&P: SEPSIS - SUSPECT CHOLECYSTITIS W/ ASSOCIATED PANCREATITIS/DUODENITIS VERONICA RISK FACTORS H&P: SEPSIS - SUSPECT CHOLECYSTITIS W/ ASSOCIATED PANCREATITIS/DUODENITIS VERONICA TREATMENTS GI CONSULT ABD/PELVIS CT/ BRAIN CT / ABD US ER: VANCOMYCIN IV 02-26 ZOSYN IV 02-26 MAR: FLAGYL IV 02-26 / 02-27 / 02-28 MAXIPIME IV 02-26 / 02-27 / 02-28 THANK YOU, TRACIE (This form is maintained as a part of the permanent medical record) 2014 [employer]. All Rights Reserved Tracie Tapia RN, BS [email or web address]
--- NOTE | 2018-02-28 14:30 | PRG ---
DATE OF SERVICE: 02/28/2018 SUBJECTIVE: The patient is without complaints. He is awaiting to have surgery. OBJECTIVE: VITAL SIGNS: Temperature 98.7, pulse 74, respiratory rate 18, blood pressure 160/77. CHEST: Clear. CARDIOVASCULAR: Regular rate and rhythm. ABDOMEN: Soft, nontender, without organomegaly or masses. LABORATORY DATA: Shows a lipase of 94, hemoglobin 11.8, hematocrit 36.9. Ultrasound showed no galls tones, distended gallbladder and a biliary ductal dilatation. ASSESSMENT: Biliary pancreatitis. RECOMMENDATIONS: Cholecystectomy with intraoperative cholangiogram.
[2018-02-28] MEDS ORDERED: Iothalamate Meglumine 60% 50 ML VIAL FS ONE (14:56)
[2018-02-28] MEDS ORDERED: Bupivacaine HCl 0.5%/Epinephrine 1:200,000/PF 30 ml Vial ONE (14:56)
[2018-02-28] MEDS ORDERED: Ondansetron HCl/PF 4 MG/2 ML Vial ONE (15:24)
[2018-02-28] MEDS ORDERED: PROPOFOL 200 MG/20 ML VIAL ONE (15:24)
[2018-02-28] MEDS ORDERED: Glycopyrrolate 0.2 MG/ML 5 ML SYRINGE ONE (15:24)
[2018-02-28] MEDS ORDERED: Lidocaine 1% PF 5 ML VIAL ONE (15:24)
[2018-02-28] MEDS ORDERED: Fentanyl 100 MCG/2 ML VIAL ONE (15:41)
[2018-02-28] MEDS ORDERED: hydrALAZINE 20 MG/ML VIAL ONE (15:49)
[2018-02-28] MEDS ORDERED: HYDROmorphone 0.5 MG/0.5 ML SYRINGE ONE (16:07)
[2018-02-28] MEDS ORDERED: Ondansetron HCl/PF 4 MG/2 ML Vial IVP PRN ×2 (17:02)
[2018-02-28] MEDS ORDERED: HYDROmorphone 2 MG/ML VIAL SLOW IVP PRN ×2 (17:02)
[2018-02-28] MEDS ORDERED: Ibuprofen 600 MG TAB PO PRN (17:25)
[2018-02-28] MEDS ORDERED: traMADol HCl 50 MG TAB PO PRN ×2 (17:25)
[2018-02-28] MEDS ORDERED: Ketorolac Tromethamine 30 MG/ML VIAL IVP PRN (17:30)
[2018-02-28] MEDS ORDERED: Acetaminophen 1,000 MG in Premix Bag 1 BAG IVPB PRN (17:30)
[2018-02-28] MEDS ORDERED: risperiDONE 0.25 MG TAB PO SCH (21:00)
--- NOTE | 2018-02-28 21:55 | OP ---
DATE OF SERVICE: 02/28/2018 PREOPERATIVE DIAGNOSIS: Biliary pancreatitis. POSTOPERATIVE DIAGNOSIS: Biliary pancreatitis. PROCEDURE: Laparoscopic video cholecystectomy. SURGEON: Jabier Kwon M.D. ANESTHESIA: General. Local 0.5% Marcaine with epinephrine changed. PROCEDURE PERFORMED: Laparoscopic cholecystectomy with normal intraoperative cholangiograms without bile duct obstruction or opacities, but markedly dilated common bile duct. PROCEDURE: The patient taken to the operating room where under general anesthesia, abdomen was clipp ed of hair, prepared with ChloraPrep, draped in routine fashion. Local anesthetic infiltrated. Skin seems tissue about the operative sites. Infraumbilical incision made and pneumoperitoneum to 15. T hese were obtained the Veress needle, replacing it with a 5 port and laparoscope inserted. Right sub xiphoid incision made and 11 port placed. Right subcostal incision made mid clavicular anterior axil magdalene lines and a 5 port placed. Liver appeared to be normal. There is gallbladder wall was edematou s. Cystic artery and duct dissected free. Critical view obtained. Cystic artery double clipped pro ximally. Cystic duct dissected free. Single clipped on the gallbladder side. Opening made in the c ystic duct cholangiocath inserted and cholangiogram was obtained using fluoroscopy revealing a marked ly dilated common hepatic, common bile, left and right hepatic ducts without filling defects and kelly ed and rapid drainage of the contrast into the duodenum with a normal tapering common bile duct. Cho langiocath removed. Cystic duct stump doubly clipped, divided. Cystic artery divided. The gallblad josie dissected free from liver bed from edematous attachments. Gallbladder and contents removed and s ubmitted to Pathology. Good hemostasis ensured with cautery and heat getting irrigant and pneumoperi toneum evacuated. Once removed and all skin incisions approximated with interrupted subdermal 4-0 Mo nocryl and DermaGlue applied.
[2018-02-28] MEDS: clonazePAM 0.5 MG TAB PO SCH (21:57)
[2018-02-28] MEDS: Enoxaparin Sodium 40 MG/0.4 ML SYRINGE SC SCH (21:57)
[2018-02-28] MEDS: diphenhydrAMINE 12.5 MG/5 ML UDCUP PO SCH (21:57)
[2018-02-28] MEDS: Gabapentin 100 MG CAP PO SCH (21:57)
[2018-02-28] MEDS: Atorvastatin Calcium 10 MG TAB PO SCH (21:58)
[2018-03-01 05:51] LABS: #Basophils 0.1 thou/uL (0.0-0.2); #Eosinphils 0.3 thou/uL (0.0-0.7); #Lymphocytes 1.4 thou/uL (1.20-3.40); #Monocytes 0.9 thou/uL (0.11-0.59); #Neutrophils 5.4 thou/uL (1.40-6.50); %Basophils 0.9 % (0.0-1.0); %Eosinophils 4.2 % (0.0-10.0); %Lymphocytes 17.4 % (21.0-51.0); %Monocytes 11.6 % (0.0-10.0); Hemoglobin 10.8 g/dL (14.0-18.0); Mean Corpuscular HGB CONC 33.2 g/dL (32.0-36.0); Mean Corpuscular Hemoglobin 30.9 pg (27.0-31.0); Mean Platelet Volume 7.3 fL (7.4-10.4); Platelet Count 207 thou/uL (130-400); RBC Distribution Width 13.3 % (11.5-14.5); White Blood Cell (WBC) Count 8.2 thou/uL (4.8-10.8)
[2018-03-01 06:00] LABS: ALT (SGPT) 75 U/L (8-55); AST (SGOT) 40 U/L (5-34); Albumin 3.4 g/dL (3.4-4.8); Alkaline Phosphatase 121 U/L (40-150); Anion Gap 10 mmol/L (10-20); BUN (Urea Nitrogen) 21 mg/dL (8.4-25.7); Bilirubin, Total 0.3 mg/dL (0.2-1.2); Calc. Creatinine Clearance 74 mL/min (70-130); Calcium 8.6 mg/dL (7.8-10.44); Carbon Dioxide 25 mmol/L (23-31); Chloride 106 mmol/L (98-107); Estimated GFR-MDRD 69; Globulin 2.9 g/dL (2.4-3.5); Glucose 98 mg/dL (80-115); Lipase 31 U/L (8-78); Potassium 4.1 mmol/L (3.5-5.1); Protein, Total 6.3 g/dL (5.8-8.1); Sodium 137 mmol/L (136-145)
[2018-03-01] MEDS: Levothyroxine 150 MCG TAB PO SCH (06:59)
--- NOTE | 2018-03-01 07:35 | RAD ---
INTRAOPERATIVE CHOLANGIOGRAM SINGLE AP RADIOGRAPH: HISTORY: Patient with a history of biliary ductal dilatation and cholecystitis. FINDINGS: Intraoperative cholangiogram was performed. There is catheterization and injection of the cystic bebe t. There is abnormal dilatation of the common bile duct along its course. The distal-most aspect of the common bile duct is not visualized; however, contrast is seen spilling into the duodenum. No de finite evidence of filling defect is seen to suggest residual calculi in the visualized portions of t he common bile duct. IMPRESSION: Intraoperative cholangiogram as described above. POS: FRIDA
[2018-03-01] MEDS ORDERED: Non-Formulary Item 1 EACH (Omeprazole [Omeprazole] 20 MG) PO SCH ×2 (09:00)
[2018-03-01] MEDS: Aspirin 325 MG TAB PO SCH (09:23)
[2018-03-01] MEDS: Citalopram 20 MG TAB PO SCH (09:23)
[2018-03-01] MEDS: risperiDONE 0.25 MG TAB PO SCH ×2 (09:24→20:37)
[2018-03-01] MEDS: Lisinopril 20 MG TAB PO SCH (09:24)
[2018-03-01] MEDS: Meloxicam 7.5 MG TAB PO SCH (09:24)
[2018-03-01] MEDS: Clopidogrel Bisulfate 75 MG TAB PO SCH (09:24)
[2018-03-01] MEDS: Gabapentin 100 MG CAP PO SCH ×2 (09:24→20:38)
--- NOTE | 2018-03-01 10:21 | PRG ---
DATE OF SERVICE: 03/01/2018 SUBJECTIVE: The patient is feeling fine after his surgery. He is eating this morning without any co mplaints. OBJECTIVE: VITAL SIGNS: Temperature 98.6, pulse 79, respiratory rate 18, blood pressure 157/81. CHEST: Clear. CARDIOVASCULAR: Regular rate and rhythm. ABDOMEN: Tender over the right upper quadrant. LABORATORY DATA: Shows a normal chemistry panel except for an AST of 40, ALT of 75. Lipase is 31. The intraoperative cholangiogram were reviewed. ASSESSMENT: 1. Biliary pancreatitis - resolved. 2. Status post cholecystectomy. RECOMMENDATIONS: 1. Continue present postop management. 2. We will sign off.
--- NOTE | 2018-03-01 12:12 | PDOC.GSPN ---
Surgery Progress Note: Subj - Subjective Patient reports: afebrile, feels better, pain is less, tolerating a regular diet Narrative: Patient continues to be groggy but is otherwise feeling better. He has not been up to ambulate yet Objective: LFTs are coming down. He is afebrile and his vital signs are okay. His incisions are clean dry and intact and his abdomen is nondistended and has appropriate kyara-incisional postoperative tenderness. Assessment/plan: Patient is doing well. From a surgical standpoint he is ready for discharge. I will sign off. Please call if there are any surgical issues. The patient was instructed to call the office on Saturday for a follow-up appointment with Dr. Kwon in about 2 weeks and should be discharged home with a 20 pound weight lifting restriction and a low-fat diet Surgery Progress Note: Obj - Vital signs Vital signs: Vital Signs - Most Recent Temp Pulse Resp BP Pulse Ox 98.6 F 79 18 157/81 H 98 03/01/18 08:05 03/01/18 08:05 03/01/18 08:05 03/01/18 08:05 03/01/18 08:05 Surgery Progress Note: Results - Labs Result Diagrams: 03/01/18 04:31 03/01/18 04:31 Lab results: Laboratory Results - last 24 hr 03/01/18 03/01/18 04:31 04:31 WBC 8.2 RBC 3.50 L Hgb 10.8 L Hct 32.6 L MCV 93.0 MCH 30.9 MCHC 33.2 RDW 13.3 Plt Count 207 MPV 7.3 L Neutrophils % 66.0 Lymphocytes % 17.4 L Monocytes % 11.6 H Eosinophils % 4.2 Basophils % 0.9 Neutrophils # 5.4 Lymphocytes # 1.4 Monocytes # 0.9 H Eosinophils # 0.3 Basophils # 0.1 Sodium 137 Potassium 4.1 Chloride 106 Carbon Dioxide 25 Anion Gap 10 BUN 21 Creatinine 1.07 Estimated GFR (MDRD) 69 Glucose 98 Calcium 8.6 Total Bilirubin 0.3 AST 40 H ALT 75 H Alkaline Phosphatase 121 Serum Total Protein 6.3 Albumin 3.4 Globulin 2.9 Albumin/Globulin Ratio 1.2 Lipase 31
--- NOTE | 2018-03-01 12:33 | PDOC.PN ---
- Subjective Encounter Start Date: 03/01/18 Encounter Start Time: 12:30 Subjective: minimal pain - Objective Resuscitation Status: Resuscitation Status FULL:Full Resuscitation Vital Signs & Weight: Vital Signs (12 hours) Temp Pulse Resp BP Pulse Ox 03/01/18 08:05 98.6 F 79 18 157/81 H 98 03/01/18 08:00 98.6 F 79 18 03/01/18 04:00 98.8 F 71 16 142/79 H 97 Weight Weight 176 lb 8 oz I&O: 02/28/18 03/01/18 03/02/18 06:59 06:59 06:59 Intake Total 1440 Output Total 550 Balance 890 Result Diagrams: 03/01/18 04:31 03/01/18 04:31 Phys Exam - Physical Examination Neck: no JVD Respiratory: clear to auscultation bilateral Cardiovascular: RRR, no significant murmur Gastrointestinal: soft, positive bowel sounds Musculoskeletal: no edema Dx/Plan (1) Pancreatitis Code(s): K85.90 - ACUTE PANCREATITIS WITHOUT NECROSIS OR INFECTION, UNSP Status: Acute Qualifiers: Chronicity: acute Pancreatitis type: unspecified pancreatitis type Acute pancreatitis complication: unspecified Qualified Code(s): K85.90 - Acute pancreatitis without necrosis or infection, unspecified (2) Pancreatic mass Status: Acute (3) GERD (gastroesophageal reflux disease) Code(s): K21.9 - GASTRO-ESOPHAGEAL REFLUX DISEASE WITHOUT ESOPHAGITIS Status: Chronic Qualifiers: Esophagitis presence: esophagitis presence not specified Qualified Code(s) : K21.9 - Gastro-esophageal reflux disease without esophagitis (4) Hypothyroidism Code(s): E03.9 - HYPOTHYROIDISM, UNSPECIFIED Status: Chronic Qualifiers: Hypothyroidism type: unspecified Qualified Code(s): E03.9 - Hypothyroidism , unspecified (5) Parkinson disease Code(s): G20 - PARKINSON'S DISEASE Status: Chronic - Plan post felisha ,doing well. discuss with family, unable to return to assisted -: care- will consult CM for placement. -: cont wound care -: selected home meds -: CM for assistance in placement * .
[2018-03-01] MEDS: Enoxaparin Sodium 40 MG/0.4 ML SYRINGE SC SCH (20:36)
[2018-03-01] MEDS: clonazePAM 0.5 MG TAB PO SCH (20:37)
[2018-03-01] MEDS: Atorvastatin Calcium 10 MG TAB PO SCH (20:38)
[2018-03-01] MEDS: Acetaminophen 325 MG TAB PO PRN (23:47)
[2018-03-02] MEDS: diphenhydrAMINE 12.5 MG/5 ML UDCUP PO SCH ×2 (00:02→21:11)
[2018-03-02] MEDS: Levothyroxine 150 MCG TAB PO SCH (05:48)
[2018-03-02] MEDS: Meloxicam 7.5 MG TAB PO SCH (08:28)
[2018-03-02] MEDS: Citalopram 20 MG TAB PO SCH (08:28)
[2018-03-02] MEDS: Aspirin 325 MG TAB PO SCH (08:28)
[2018-03-02] MEDS: Gabapentin 100 MG CAP PO SCH ×2 (08:28→21:01)
[2018-03-02] MEDS: Clopidogrel Bisulfate 75 MG TAB PO SCH (08:28)
[2018-03-02] MEDS: risperiDONE 0.25 MG TAB PO SCH ×2 (08:29→21:01)
[2018-03-02] MEDS: Lisinopril 20 MG TAB PO SCH (08:29)
--- NOTE | 2018-03-02 11:12 | PDOC.PN ---
- Subjective Encounter Start Date: 03/02/18 Encounter Start Time: 11:10 Patient seen and examined, states he's tolerating diet and has passed gas, no other issues or complaints, all questions answered. - Objective Resuscitation Status: Resuscitation Status FULL:Full Resuscitation Vital Signs & Weight: Vital Signs (12 hours) Temp Pulse Resp BP BP Pulse Ox 03/02/18 08:29 159/68 H 03/02/18 08:00 98.2 F 65 18 159/68 H 96 03/02/18 03:35 98.7 F 70 20 146/76 H 98 03/01/18 23:20 100.8 F H 74 22 H 141/69 H 97 Weight Weight 176 lb 8 oz I&O: 03/01/18 03/02/18 03/03/18 06:59 06:59 06:59 Intake Total 1040 Output Total 300 Balance 740 Result Diagrams: 03/01/18 04:31 03/01/18 04:31 Phys Exam - Physical Examination Constitutional: NAD HEENT: PERRLA, moist MMs, sclera anicteric Neck: no nodes, no JVD, supple Respiratory: no wheezing, no rales, no rhonchi Cardiovascular: RRR, no significant murmur, no rub Gastrointestinal: soft, non-tender, no distention Musculoskeletal: no edema, pulses present Dx/Plan (1) S/P cholecystectomy Code(s): Z90.49 - ACQUIRED ABSENCE OF OTHER SPECIFIED PARTS OF DIGESTIVE TRACT Status: Acute (2) Chest pain Code(s): R07.9 - CHEST PAIN, UNSPECIFIED Status: Acute Qualifiers: (3) Dyslipidemia Code(s): E78.5 - HYPERLIPIDEMIA, UNSPECIFIED Status: Chronic (4) GERD (gastroesophageal reflux disease) Code(s): K21.9 - GASTRO-ESOPHAGEAL REFLUX DISEASE WITHOUT ESOPHAGITIS Status: Chronic Qualifiers: Esophagitis presence: esophagitis presence not specified Qualified Code(s) : K21.9 - Gastro-esophageal reflux disease without esophagitis - Plan * pending rehab placement * CM helping arrange placement * continue with supportive care and pain control for now * DC once rehab arranged * case and plan d/w patient at length, he understands and agrees with this plan
[2018-03-02] MEDS: Atorvastatin Calcium 10 MG TAB PO SCH (21:01)
[2018-03-02] MEDS: clonazePAM 0.5 MG TAB PO SCH (21:01)
[2018-03-02] MEDS: Enoxaparin Sodium 40 MG/0.4 ML SYRINGE SC SCH (21:01)
[2018-03-03] MEDS: Acetaminophen 325 MG TAB PO PRN (00:43)
[2018-03-03] MEDS: Levothyroxine 150 MCG TAB PO SCH (05:40)
[2018-03-03] MEDS: Gabapentin 100 MG CAP PO SCH ×2 (08:32→21:18)
[2018-03-03] MEDS: risperiDONE 0.25 MG TAB PO SCH ×2 (08:32→21:19)
[2018-03-03] MEDS: Lisinopril 20 MG TAB PO SCH (08:33)
[2018-03-03] MEDS: Aspirin 325 MG TAB PO SCH (08:33)
[2018-03-03] MEDS: Clopidogrel Bisulfate 75 MG TAB PO SCH (08:33)
[2018-03-03] MEDS: Meloxicam 7.5 MG TAB PO SCH (08:33)
[2018-03-03] MEDS: Citalopram 20 MG TAB PO SCH (08:35)
--- NOTE | 2018-03-03 12:38 | PDOC.PN ---
- Subjective Encounter Start Date: 03/03/18 Encounter Start Time: 07:40 Pt seen for followup re; physical deconditioning. Reports feeling well, denies chest pain, shortness of breath, fevers or chills. - Objective Resuscitation Status: Resuscitation Status FULL:Full Resuscitation MAR Reviewed: Yes Vital Signs & Weight: Vital Signs (12 hours) Temp Pulse Resp BP BP Pulse Ox 03/03/18 11:50 98.2 F 65 20 175/65 H 94 L 03/03/18 09:01 98.5 F 68 16 95 03/03/18 08:33 157/82 H 03/03/18 07:55 98.5 F 68 16 157/82 H 95 03/03/18 03:31 98.8 F 80 18 164/75 H 95 Weight Weight 176 lb 8 oz I&O: 03/02/18 03/03/18 03/04/18 06:59 06:59 06:59 Intake Total 1040 480 Output Total 300 600 Balance 740 -120 Result Diagrams: 03/01/18 04:31 03/01/18 04:31 Phys Exam - Physical Examination Constitutional: NAD HEENT: moist MMs Neck: supple Respiratory: clear to auscultation bilateral Cardiovascular: RRR Gastrointestinal: soft Neurological: moves all 4 limbs Psychiatric: normal affect Skin: no rash Dx/Plan (1) Physical deconditioning Code(s): R53.81 - OTHER MALAISE Status: Acute Comment: Awaiting SNU bed (2) Pancreatitis Code(s): K85.90 - ACUTE PANCREATITIS WITHOUT NECROSIS OR INFECTION, UNSP Status: Acute Qualifiers: Chronicity: acute Pancreatitis type: unspecified pancreatitis type Acute pancreatitis complication: unspecified Qualified Code(s): K85.90 - Acute pancreatitis without necrosis or infection, unspecified Comment: Improved (3) S/P cholecystectomy Code(s): Z90.49 - ACQUIRED ABSENCE OF OTHER SPECIFIED PARTS OF DIGESTIVE TRACT Status: Chronic (4) Anxiety and depression Code(s): F41.8 - OTHER SPECIFIED ANXIETY DISORDERS Status: Chronic Comment: stable (5) COPD (chronic obstructive pulmonary disease) Status: Chronic Comment: stable (6) Dyslipidemia Code(s): E78.5 - HYPERLIPIDEMIA, UNSPECIFIED Status: Chronic Comment: continue statin (7) GERD (gastroesophageal reflux disease) Code(s): K21.9 - GASTRO-ESOPHAGEAL REFLUX DISEASE WITHOUT ESOPHAGITIS Status: Chronic Qualifiers: Esophagitis presence: esophagitis presence not specified Qualified Code(s) : K21.9 - Gastro-esophageal reflux disease without esophagitis (8) Hypothyroidism Code(s): E03.9 - HYPOTHYROIDISM, UNSPECIFIED Status: Chronic Qualifiers: Hypothyroidism type: unspecified Qualified Code(s): E03.9 - Hypothyroidism , unspecified - Plan * . Review of Systems - Review of Systems Constitutional: weakness. negative: fever, chills, sweats, malaise Gastrointestinal: negative: Nausea, Vomiting, Abdominal Pain, Diarrhea, Constipation, Melena, Hematochezia - Medications/Allergies Allergies/Adverse Reactions: Allergies Allergy/AdvReac Type Severity Reaction Status Date / Time Penicillins Allergy Verified 02/26/18 22:10 Medications: Current Medications Acetaminophen (Tylenol) 650 mg PO QID PRN PRN Reason: Headache/Fever or Pain Last Admin: 03/03/18 00:43 Dose: 650 mg Aspirin (Aspirin) 325 mg PO DAILY [facility] Last Admin: 03/03/18 08:33 Dose: 325 mg Atorvastatin Calcium (Lipitor) 10 mg PO HS [facility] Last Admin: 03/02/18 21:01 Dose: 10 mg Citalopram Hydrobromide (Celexa) 30 mg PO DAILY [facility] Last Admin: 03/03/18 08:35 Dose: 30 mg Clonazepam (Klonopin) 0.5 mg PO HS [facility] Last Admin: 03/02/18 21:01 Dose: 0.5 mg Clonidine (Catapres) 0.1 mg PO Q4H PRN PRN Reason: Systolic BP > 180 Last Admin: 02/27/18 23:19 Dose: 0.1 mg Clopidogrel Bisulfate (Plavix) 75 mg PO DAILY [facility] Last Admin: 03/03/18 08:33 Dose: 75 mg Diphenhydramine HCl (Benadryl) 62.5 mg PO HS [facility] Last Admin: 03/02/18 21:11 Dose: 62.5 mg Enoxaparin Sodium (Lovenox) 40 mg SC 2100 [facility] Last Admin: 03/02/18 21:01 Dose: 40 mg Gabapentin (Neurontin) 200 mg PO BID [facility] Last Admin: 03/03/18 08:32 Dose: 200 mg Hydralazine HCl (Apresoline) 10 mg SLOW IVP Q4H PRN PRN Reason: Systolic BP > 180 Last Admin: 02/27/18 16:18 Dose: 10 mg Ibuprofen (Motrin) 600 mg PO Q6H PRN PRN Reason: Pain Ketorolac Tromethamine (Toradol) 30 mg IVP Q6H PRN PRN Reason: Pain Stop: 03/05/18 17:31 Levothyroxine Sodium (Synthroid) 150 mcg PO 0600 [facility] Last Admin: 03/03/18 05:40 Dose: 150 mcg Lisinopril (Zestril) 20 mg PO DAILY [facility] Last Admin: 03/03/18 08:33 Dose: 20 mg Meloxicam (Mobic) 7.5 mg PO DAILY [facility] Last Admin: 03/03/18 08:33 Dose: 7.5 mg Ondansetron HCl (Zofran Odt) 4 mg PO Q6H PRN PRN Reason: Nausea/Vomiting Last Admin: 03/02/18 12:12 Dose: 4 mg Ondansetron HCl (Zofran) 4 mg IVP Q6H PRN PRN Reason: Nausea/Vomiting Pantoprazole Sodium (Protonix) 40 mg PO DAILY [facility] Last Admin: 03/03/18 08:32 Dose: 40 mg Quetiapine Fumarate (Seroquel) 50 mg PO BID [facility] Last Admin: 03/03/18 08:33 Dose: 50 mg Risperidone (Risperidone) 0.5 mg PO BID [facility] Last Admin: 03/03/18 08:32 Dose: 0.5 mg Tramadol HCl (Ultram) 50 mg PO Q6H PRN PRN Reason: Moderate Pain (4-6) Tramadol HCl (Ultram) 100 mg PO Q6H PRN PRN Reason: Severe Pain (7-10)
[2018-03-03] MEDS: clonazePAM 0.5 MG TAB PO SCH (21:20)
[2018-03-03] MEDS: Atorvastatin Calcium 10 MG TAB PO SCH (21:20)
[2018-03-03] MEDS: diphenhydrAMINE 12.5 MG/5 ML UDCUP PO SCH (21:21)
[2018-03-03] MEDS: Enoxaparin Sodium 40 MG/0.4 ML SYRINGE SC SCH (21:21)
[2018-03-04] MEDS: Acetaminophen 325 MG TAB PO PRN (04:38)
[2018-03-04] MEDS: Levothyroxine 150 MCG TAB PO SCH (05:52)
[2018-03-04] MEDS: Aspirin 325 MG TAB PO SCH (08:58)
[2018-03-04] MEDS: Citalopram 20 MG TAB PO SCH (08:58)
[2018-03-04] MEDS: Lisinopril 20 MG TAB PO SCH (08:58)
[2018-03-04] MEDS: Gabapentin 100 MG CAP PO SCH ×2 (08:58→20:49)
[2018-03-04] MEDS: risperiDONE 0.25 MG TAB PO SCH ×2 (08:58→20:55)
[2018-03-04] MEDS: Meloxicam 7.5 MG TAB PO SCH (08:58)
[2018-03-04] MEDS: Clopidogrel Bisulfate 75 MG TAB PO SCH (08:59)
--- NOTE | 2018-03-04 14:54 | PDOC.PN ---
- Subjective Encounter Start Date: 03/04/18 Encounter Start Time: 08:40 Pt seen for followup re: physical deconditioning. Denies chest pain, shortness of breath, fevers or chills. - Objective Resuscitation Status: Resuscitation Status FULL:Full Resuscitation MAR Reviewed: Yes Vital Signs & Weight: Vital Signs (12 hours) Temp Pulse Resp BP BP Pulse Ox 03/04/18 12:51 65 130/77 03/04/18 11:17 97.8 F 61 18 188/93 H 95 03/04/18 08:58 172/80 H 03/04/18 08:34 98.7 F 62 16 97 03/04/18 07:07 98.7 F 62 16 172/80 H 97 03/04/18 04:00 99.1 F 66 14 155/77 H 95 Weight Weight 176 lb 8 oz I&O: 03/03/18 03/04/18 03/05/18 06:59 06:59 06:59 Intake Total 480 490 Output Total 600 100 Balance -120 390 Result Diagrams: 03/01/18 04:31 03/01/18 04:31 Phys Exam - Physical Examination Constitutional: NAD HEENT: moist MMs Neck: supple Respiratory: clear to auscultation bilateral Cardiovascular: RRR Gastrointestinal: soft surgical sites clean Neurological: moves all 4 limbs Psychiatric: normal affect Dx/Plan (1) Physical deconditioning Code(s): R53.81 - OTHER MALAISE Status: Acute Comment: Awaiting SNU bed (2) Pancreatitis Code(s): K85.90 - ACUTE PANCREATITIS WITHOUT NECROSIS OR INFECTION, UNSP Status: Resolved Qualifiers: Chronicity: acute Pancreatitis type: unspecified pancreatitis type Acute pancreatitis complication: unspecified Qualified Code(s): K85.90 - Acute pancreatitis without necrosis or infection, unspecified Comment: Improved (3) S/P cholecystectomy Code(s): Z90.49 - ACQUIRED ABSENCE OF OTHER SPECIFIED PARTS OF DIGESTIVE TRACT Status: Acute Comment: no complaints today (4) Anxiety and depression Code(s): F41.8 - OTHER SPECIFIED ANXIETY DISORDERS Status: Chronic Comment: stable (5) COPD (chronic obstructive pulmonary disease) Status: Chronic Comment: stable (6) Dyslipidemia Code(s): E78.5 - HYPERLIPIDEMIA, UNSPECIFIED Status: Chronic Comment: continue statin (7) GERD (gastroesophageal reflux disease) Code(s): K21.9 - GASTRO-ESOPHAGEAL REFLUX DISEASE WITHOUT ESOPHAGITIS Status: Chronic Qualifiers: Esophagitis presence: esophagitis presence not specified Qualified Code(s) : K21.9 - Gastro-esophageal reflux disease without esophagitis (8) Hypothyroidism Code(s): E03.9 - HYPOTHYROIDISM, UNSPECIFIED Status: Chronic Qualifiers: Hypothyroidism type: unspecified Qualified Code(s): E03.9 - Hypothyroidism , unspecified - Plan * . Review of Systems - Review of Systems Constitutional: negative: fever, chills, sweats, weakness, malaise Respiratory: negative: Cough, Dry, Shortness of Breath, Hemoptysis Cardiovascular: negative: chest pain, palpitations, edema, light headedness - Medications/Allergies Allergies/Adverse Reactions: Allergies Allergy/AdvReac Type Severity Reaction Status Date / Time Penicillins Allergy Verified 02/26/18 22:10 Medications: Current Medications Acetaminophen (Tylenol) 650 mg PO QID PRN PRN Reason: Headache/Fever or Pain Last Admin: 03/04/18 04:38 Dose: 650 mg Aspirin (Aspirin) 325 mg PO DAILY [facility] Last Admin: 03/04/18 08:58 Dose: 325 mg Atorvastatin Calcium (Lipitor) 10 mg PO HS [facility] Last Admin: 03/03/18 21:20 Dose: 10 mg Citalopram Hydrobromide (Celexa) 30 mg PO DAILY [facility] Last Admin: 03/04/18 08:58 Dose: 30 mg Clonazepam (Klonopin) 0.5 mg PO HS [facility] Last Admin: 03/03/18 21:20 Dose: 0.5 mg Clonidine (Catapres) 0.1 mg PO Q4H PRN PRN Reason: Systolic BP > 180 Last Admin: 02/27/18 23:19 Dose: 0.1 mg Clopidogrel Bisulfate (Plavix) 75 mg PO DAILY [facility] Last Admin: 03/04/18 08:59 Dose: 75 mg Diphenhydramine HCl (Benadryl) 62.5 mg PO HS [facility] Last Admin: 03/03/18 21:21 Dose: 62.5 mg Enoxaparin Sodium (Lovenox) 40 mg SC 2100 [facility] Last Admin: 03/03/18 21:21 Dose: 40 mg Gabapentin (Neurontin) 200 mg PO BID [facility] Last Admin: 03/04/18 08:58 Dose: 200 mg Hydralazine HCl (Apresoline) 10 mg SLOW IVP Q4H PRN PRN Reason: Systolic BP > 180 Last Admin: 02/27/18 16:18 Dose: 10 mg Ibuprofen (Motrin) 600 mg PO Q6H PRN PRN Reason: Pain Ketorolac Tromethamine (Toradol) 30 mg IVP Q6H PRN PRN Reason: Pain Stop: 03/05/18 17:31 Levothyroxine Sodium (Synthroid) 150 mcg PO 0600 [facility] Last Admin: 03/04/18 05:52 Dose: 150 mcg Lisinopril (Zestril) 20 mg PO DAILY [facility] Last Admin: 03/04/18 08:58 Dose: 20 mg Meloxicam (Mobic) 7.5 mg PO DAILY [facility] Last Admin: 03/04/18 08:58 Dose: 7.5 mg Ondansetron HCl (Zofran Odt) 4 mg PO Q6H PRN PRN Reason: Nausea/Vomiting Last Admin: 03/02/18 12:12 Dose: 4 mg Ondansetron HCl (Zofran) 4 mg IVP Q6H PRN PRN Reason: Nausea/Vomiting Pantoprazole Sodium (Protonix) 40 mg PO DAILY [facility] Last Admin: 03/04/18 08:58 Dose: 40 mg Quetiapine Fumarate (Seroquel) 50 mg PO BID [facility] Last Admin: 03/04/18 08:58 Dose: 50 mg Risperidone (Risperidone) 0.5 mg PO BID [facility] Last Admin: 03/04/18 08:58 Dose: 0.5 mg Tramadol HCl (Ultram) 50 mg PO Q6H PRN PRN Reason: Moderate Pain (4-6) Tramadol HCl (Ultram) 100 mg PO Q6H PRN PRN Reason: Severe Pain (7-10)
[2018-03-04] MEDS: Atorvastatin Calcium 10 MG TAB PO SCH (20:48)
[2018-03-04] MEDS: clonazePAM 0.5 MG TAB PO SCH (20:55)
[2018-03-04] MEDS: diphenhydrAMINE 12.5 MG/5 ML UDCUP PO SCH (20:57)
[2018-03-04] MEDS: Enoxaparin Sodium 40 MG/0.4 ML SYRINGE SC SCH (20:58)
[2018-03-05] MEDS: Levothyroxine 150 MCG TAB PO SCH (06:07)
[2018-03-05] MEDS: Aspirin 325 MG TAB PO SCH (08:45)
[2018-03-05] MEDS: Clopidogrel Bisulfate 75 MG TAB PO SCH (08:45)
[2018-03-05] MEDS: risperiDONE 0.25 MG TAB PO SCH (08:45)
[2018-03-05] MEDS: Citalopram 20 MG TAB PO SCH (08:46)
[2018-03-05] MEDS: Meloxicam 7.5 MG TAB PO SCH (08:46)
[2018-03-05] MEDS: Lisinopril 20 MG TAB PO SCH (08:46)
[2018-03-05] MEDS: Gabapentin 100 MG CAP PO SCH (08:46)
--- NOTE | 2018-03-05 12:41 | PDOC.PN ---
- Subjective Encounter Start Date: 03/05/18 Encounter Start Time: 09:00 P seen for followup re: physical deconditioning. Denies chest pain, shortness of breath, fevers or chills. - Objective Resuscitation Status: Resuscitation Status FULL:Full Resuscitation MAR Reviewed: Yes Vital Signs & Weight: Vital Signs (12 hours) Temp Pulse Resp BP Pulse Ox 03/05/18 11:00 97.7 F 66 18 153/71 H 97 03/05/18 07:21 97.4 F L 66 16 157/79 H 95 03/05/18 04:00 98.7 F 71 20 168/78 H 95 Weight Weight 176 lb 8 oz I&O: 03/04/18 03/05/18 03/06/18 06:59 06:59 06:59 Intake Total 490 350 Output Total 100 800 Balance 390 -450 Result Diagrams: 03/01/18 04:31 03/01/18 04:31 Phys Exam - Physical Examination Constitutional: NAD HEENT: moist MMs Neck: supple Respiratory: clear to auscultation bilateral Cardiovascular: RRR Gastrointestinal: soft Neurological: moves all 4 limbs Psychiatric: normal affect Dx/Plan (1) Physical deconditioning Code(s): R53.81 - OTHER MALAISE Status: Acute Comment: Awaiting SNU bed (2) S/P cholecystectomy Code(s): Z90.49 - ACQUIRED ABSENCE OF OTHER SPECIFIED PARTS OF DIGESTIVE TRACT Status: Acute Comment: no complaints today (3) Anxiety and depression Code(s): F41.8 - OTHER SPECIFIED ANXIETY DISORDERS Status: Chronic Comment: stable (4) COPD (chronic obstructive pulmonary disease) Status: Chronic Comment: stable (5) Dyslipidemia Code(s): E78.5 - HYPERLIPIDEMIA, UNSPECIFIED Status: Chronic Comment: on statin (6) GERD (gastroesophageal reflux disease) Code(s): K21.9 - GASTRO-ESOPHAGEAL REFLUX DISEASE WITHOUT ESOPHAGITIS Status: Chronic Qualifiers: Esophagitis presence: esophagitis presence not specified Qualified Code(s) : K21.9 - Gastro-esophageal reflux disease without esophagitis Comment: stable (7) Hypothyroidism Code(s): E03.9 - HYPOTHYROIDISM, UNSPECIFIED Status: Chronic Qualifiers: Hypothyroidism type: unspecified Qualified Code(s): E03.9 - Hypothyroidism , unspecified (8) Pancreatitis Code(s): K85.90 - ACUTE PANCREATITIS WITHOUT NECROSIS OR INFECTION, UNSP Status: Resolved Qualifiers: Chronicity: acute Pancreatitis type: unspecified pancreatitis type Acute pancreatitis complication: unspecified Qualified Code(s): K85.90 - Acute pancreatitis without necrosis or infection, unspecified Comment: Improved - Plan * . Review of Systems - Review of Systems Constitutional: weakness. negative: fever, chills, sweats, malaise Cardiovascular: negative: chest pain, palpitations, orthopnea, paroxysmal nocturnal dyspnea, edema, light headedness - Medications/Allergies Allergies/Adverse Reactions: Allergies Allergy/AdvReac Type Severity Reaction Status Date / Time Penicillins Allergy Verified 02/26/18 22:10 Medications: Current Medications Acetaminophen (Tylenol) 650 mg PO QID PRN PRN Reason: Headache/Fever or Pain Last Admin: 03/04/18 04:38 Dose: 650 mg Aspirin (Aspirin) 325 mg PO DAILY [facility] Last Admin: 03/05/18 08:45 Dose: 325 mg Atorvastatin Calcium (Lipitor) 10 mg PO HS [facility] Last Admin: 03/04/18 20:48 Dose: 10 mg Citalopram Hydrobromide (Celexa) 30 mg PO DAILY [facility] Last Admin: 03/05/18 08:46 Dose: 30 mg Clonazepam (Klonopin) 0.5 mg PO HS [facility] Last Admin: 03/04/18 20:55 Dose: 0.5 mg Clonidine (Catapres) 0.1 mg PO Q4H PRN PRN Reason: Systolic BP > 180 Last Admin: 02/27/18 23:19 Dose: 0.1 mg Clopidogrel Bisulfate (Plavix) 75 mg PO DAILY [facility] Last Admin: 03/05/18 08:45 Dose: 75 mg Diphenhydramine HCl (Benadryl) 62.5 mg PO HS [facility] Last Admin: 03/04/18 20:57 Dose: 62.5 mg Enoxaparin Sodium (Lovenox) 40 mg SC 2100 [facility] Last Admin: 03/04/18 20:58 Dose: 40 mg Gabapentin (Neurontin) 200 mg PO BID [facility] Last Admin: 03/05/18 08:46 Dose: 200 mg Hydralazine HCl (Apresoline) 10 mg SLOW IVP Q4H PRN PRN Reason: Systolic BP > 180 Last Admin: 02/27/18 16:18 Dose: 10 mg Ibuprofen (Motrin) 600 mg PO Q6H PRN PRN Reason: Pain Ketorolac Tromethamine (Toradol) 30 mg IVP Q6H PRN PRN Reason: Pain Stop: 03/05/18 17:31 Levothyroxine Sodium (Synthroid) 150 mcg PO 0600 [facility] Last Admin: 03/05/18 06:07 Dose: 150 mcg Lisinopril (Zestril) 20 mg PO DAILY [facility] Last Admin: 03/05/18 08:46 Dose: 20 mg Meloxicam (Mobic) 7.5 mg PO DAILY [facility] Last Admin: 03/05/18 08:46 Dose: 7.5 mg Ondansetron HCl (Zofran Odt) 4 mg PO Q6H PRN PRN Reason: Nausea/Vomiting Last Admin: 03/02/18 12:12 Dose: 4 mg Ondansetron HCl (Zofran) 4 mg IVP Q6H PRN PRN Reason: Nausea/Vomiting Pantoprazole Sodium (Protonix) 40 mg PO DAILY [facility] Last Admin: 03/05/18 08:47 Dose: 40 mg Quetiapine Fumarate (Seroquel) 50 mg PO BID [facility] Last Admin: 03/05/18 08:45 Dose: 50 mg Risperidone (Risperidone) 0.5 mg PO BID [facility] Last Admin: 03/05/18 08:45 Dose: 0.5 mg Tramadol HCl (Ultram) 50 mg PO Q6H PRN PRN Reason: Moderate Pain (4-6) Tramadol HCl (Ultram) 100 mg PO Q6H PRN PRN Reason: Severe Pain (7-10)
--- NOTE | 2018-03-05 14:10 | DIS ---
DATE OF ADMISSION: 02/26/2018 DATE OF DISCHARGE: 03/05/2018 PRIMARY CARE PHYSICIAN: Rafael Mora M.D. DISCHARGE DIAGNOSES: 1. Sepsis. 2. Biliary pancreatitis. 3. Chronic cholecystitis per biopsy report. 4. Physical deconditioning. 5. Acute renal failure. CONDITION OF PATIENT ON THE DAY OF DISCHARGE: Stable. I assessed Mr. Al on the day of discharge . Please refer to my daily progress note for further details regarding this face to [id number] enc ounter. CONSULTATIONS DURING THIS HOSPITALIZATION: General Surgery, Dr. Kwon and Gastroenterology, Dr. Danyelle Morfin. HOSPITAL COURSE: Mr. Al is a pleasant 67-year-old gentleman who was admitted to [facility] on 02/26/2018 for abdominal pain and diarrhea. He was found to be in sepsis. He w as also found to have pancreatitis. Gastroenterology Service and General Surgery Services were consu lted. He also received intravenous fluids for acute kidney injury. Abdominal ultrasound on 02/28/20 showed moderately distended gallbladder with mild wall thickening and pericholecystic edema as wel l as biliary ductal dilatation. On 02/28/2018, he underwent laparoscopic video cholecystectomy. His liver function test improved. He improved symptomatically as well, although he became deconditioned . He is being discharged to [facility] for further management. DISCHARGE MEDICATIONS: The same as preadmission home medications as dictated on history and physical note from 02/26/2018. His urine culture grew beta hemolytic streptococcus, but it was less than 5000 colony forming units p er mL. Many thanks for allowing me to participate in your patient's care. Please feel free to contact me wi th any questions or concerns. DISCHARGE DESTINATION: [facility]. TOTAL AMOUNT OF TIME SPENT COORDINATING THIS DISCHARGE: 34 minutes.
[2018-03-05 16:09] VITALS: BP 159/72; TEMP 98.5
== END 2018-03-05 16:10 | DRG 853 ==
LOC: ERS 14:48 → SURG A 18:40
PROVIDERS: ADMIT Emergency Medicine; ATTEND Emergency Medicine
PROC: 0FT44ZZ Resection of Gallbladder, Percutaneous Endoscopic Approach (ICD-10-PCS; principal; 2018-02-28)
PROC: BF101ZZ Fluoroscopy of Bile Ducts using Low Osmolar Contrast (ICD-10-PCS; 2018-02-28)
DX: A41.9 Sepsis, unspecified organism (principal); K85.10 Biliary acute pancreatitis without necrosis or infection; N17.9 Acute kidney failure, unspecified; G20 Parkinson's disease; K80.10 Calculus of gallbladder with chronic cholecystitis without obstruction; J44.9 Chronic obstructive pulmonary disease, unspecified; F25.9 Schizoaffective disorder, unspecified; I25.10 Atherosclerotic heart disease of native coronary artery without angina pectoris; I73.9 Peripheral vascular disease, unspecified; E03.9 Hypothyroidism, unspecified; K21.9 Gastro-esophageal reflux disease without esophagitis; E78.5 Hyperlipidemia, unspecified; F41.9 Anxiety disorder, unspecified; F32.9 Major depressive disorder, single episode, unspecified; G62.9 Polyneuropathy, unspecified; Z85.828 Personal history of other malignant neoplasm of skin; Z79.82 Long term (current) use of aspirin; Z88.8 Allergy status to other drugs, medicaments and biological substances; I10 Essential (primary) hypertension; Z88.0 Allergy status to penicillin; Z79.899 Other long term (current) drug therapy; Z91.81 History of falling
CPT/HCPCS: 36415; 47532; 70450; 71045; 72125; 74177; 76705; 80053; 80061; 81003; 81015; 83605; 83690; 85007; 85025; 85027; 87040; 87086; 88304; 93005; 96361; 96365; 96367; C9113; G8978-GP-CM; G8979-GP-CI; G8987-GO-CM; G8988-GO-CJ; J0360; J0670; J0692; J1170; J1610; J1650; J2001; J2405; J2543; J2704; J3010; J3370; Q0162; Q9961

== ENCOUNTER 2018-09-18 09:21 | Outpatient (CLI) | payer MEDICARE ==
--- NOTE | 2018-09-18 15:48 | NM ---
NUCLEAR MEDICINE TOMOGRAPHIC BRAIN IMAGIN09/18/18 HISTORY: Drug induced secondary Parkinsonism. TECHNIQUE: A tomographic nuclear medicine brain scan was performed after the administration of 4.6 millicuries o f I-123 Ioflupane. FINDINGS: Tomographic images shows a comma shaped appearance of the bilateral basal ganglia which is normal. IMPRESSION: No evidence of Parkinsonian syndrome. POS: [facility]
== END 2018-09-18 09:22 | disposition home or self-care (01) ==
LOC: NM 09:21
PROVIDERS: ATTEND Psychiatry & Neurology Neurology
DX: G21.19 Other drug induced secondary parkinsonism (principal)
CPT/HCPCS: 78607; A9584